=== PATIENT | female | born 1935 | race Caucasian/White ===

== ENCOUNTER 2017-08-05 09:20 | Outpatient (CLI) | payer MEDICARE, BC | END 2017-08-05 09:21 | disposition home or self-care (01) | LOC: BICMAMMO 09:20 | PROVIDERS: ATTEND Internal Medicine | DX: Z12.31 Encounter for screening mammogram for malignant neoplasm of breast (principal); R92.1 Mammographic calcification found on diagnostic imaging of breast; Z80.3 Family history of malignant neoplasm of breast | CPT/HCPCS: 77063; 77067 ==

== ENCOUNTER 2019-03-14 16:34 | Emergency (ER) | payer MEDICARE, BC ==
[~2019-03-14 16:34] MED LIST: ISOVUE-370 76%-LOCM 1 ML ONE
--- NOTE | 2019-03-14 17:20 | RAD ---
PA AND LATERAL CHEST: 03/14/19 HISTORY: Chest pain. Heart size is within normal limits. There are atherosclerotic changes of the aorta. The lungs are pedro ar of infiltrates. There are arthritic changes of the spine. IMPRESSION: No active intrathoracic disease. POS: [facility]
[2019-03-14 18:11] LABS: #Eosinphils 0.1 thou/uL (0.0-0.7); #Lymphocytes 1.9 thou/uL (1.20-3.40); #Monocytes 1.1 thou/uL (0.11-0.59); #Neutrophils 8.1 thou/uL (1.40-6.50); %Basophils 0.2 % (0.0-1.0); %Eosinophils 0.9 % (0.0-10.0); %Lymphocytes 17.2 % (21.0-51.0); %Monocytes 9.5 % (0.0-10.0); %Neutrophils 72.1 % (42.0-75.0); Hemoglobin 12.3 g/dL (12.0-16.0); Mean Corpuscular HGB CONC 34.6 g/dL (32.0-36.0); Mean Corpuscular Hemoglobin 31.6 pg (27.0-31.0); Mean Corpuscular Volume 91.2 fL (78.0-98.0); Mean Platelet Volume 6.5 fL (7.4-10.4); Platelet Count 308 thou/uL (130-400); RBC Distribution Width 11.8 % (11.5-14.5); Red Blood Cell (RBC) Count 3.88 mill/uL (4.20-5.40); White Blood Cell (WBC) Count 11.2 thou/uL (4.8-10.8)
[2019-03-14 18:33] LABS: Anion Gap 13 mmol/L (10-20); BUN (Urea Nitrogen) 16 mg/dL (9.8-20.1); Calc. Creatinine Clearance 0 mL/min (70-130); Calcium 9.3 mg/dL (7.8-10.44); Carbon Dioxide 23 mmol/L (23-31); Chloride 95 mmol/L (98-107); Estimated GFR-MDRD 45; Glucose 103 mg/dL (83-110); Magnesium 1.8 mg/dL (1.6-2.6); Sodium 127 mmol/L (136-145)
--- NOTE | 2019-03-14 19:37 | CT ---
CTA OF THE THORAX UTILIZING IV CONTRAST AND 3D REFORMATTED IMAGIN03/14/19 INDICATION: Left sided chest pain, shortness of breath. COMPARISON: Prior CT of the thorax dated 03/09/19 and 11/11/17. FINDINGS: No central or segmental pulmonary embolus is evident. No pathologically enlarged lymph nodes are noted. There is an area of tree-in-bud nodularity involving the inferior lingula. No pleural effusion or pne umothorax is evident. There are areas of subsegmental volume loss involving both lower lobes, right m iddle lobe and portions of the right upper lobe. There are coronary artery and thoracic aortic calcifications. There are gallstones seen within the gallbladder. There is a 2 cm and 3.4 cm cyst involving segment V I of the right hepatic lobe. There are tiny subcentimeter suspected cysts within the lateral left and medial left hepatic lobe. These small cysts are stable since 2018. The visualized adrenal glands are normal appearing. No definite acute osseous abnormality is evident. There are scattered degenerative and osteoarthritic change. IMPRESSION: 1. No central or segmental pulmonary embolus. 2. Area of tree-in-bud nodularity within the lingula suspicious for bronchiolitis. Follow-up CT evaluation in 6 to 8 weeks recommended to document resolution. 3. Cholelithiasis. 4. Hepatic cysts. POS: [facility]
== END 2019-03-14 20:00 | disposition home or self-care (01) ==
LOC: ERS 16:34
DX: J21.9 Acute bronchiolitis, unspecified (principal); E87.1 Hypo-osmolality and hyponatremia; I48.91 Unspecified atrial fibrillation; E78.5 Hyperlipidemia, unspecified; I10 Essential (primary) hypertension; E03.9 Hypothyroidism, unspecified; Z79.899 Other long term (current) drug therapy
CPT/HCPCS: 71046; 71275; 80048; 83735; 84484; 85025; 85379; 93005

== ENCOUNTER 2020-04-28 17:29 | Inpatient (IN) | payer MEDICARE, BC ==
[2020-04-28 18:01] LABS: #Eosinphils 0.2 thou/uL (0.0-0.7); #Monocytes 1.3 thou/uL (0.11-0.59); #Neutrophils 11.6 thou/uL (1.40-6.50); %Basophils 0.3 % (0.0-1.0); %Eosinophils 1.6 % (0.0-10.0); %Lymphocytes 13.1 % (21.0-51.0); %Monocytes 8.5 % (0.0-10.0); %Neutrophils 76.5 % (42.0-75.0); Hemoglobin 11.9 g/dL (12.0-16.0); Mean Corpuscular Hemoglobin 31.4 pg (27.0-31.0); Mean Corpuscular Volume 95.1 fL (78.0-98.0); Mean Platelet Volume 6.7 fL (7.4-10.4); Platelet Count 474 thou/uL (130-400); RBC Distribution Width 12.5 % (11.5-14.5); White Blood Cell (WBC) Count 15.2 thou/uL (4.8-10.8)
[2020-04-28] MEDS ORDERED: Atropine Sulfate 1 mg/10 ml Syringe ONE ×2 (18:03→18:28)
[2020-04-28 18:10] LABS: INR-International Normal Ratio 1.2; PTT 38.6 sec (22.9-36.1); Prothrombin Time 15.9 sec (12.0-14.7)
[2020-04-28 18:30] LABS: ALT (SGPT) 12 U/L (8-55); AST (SGOT) 17 U/L (5-34); Alkaline Phosphatase 73 U/L (40-110); Anion Gap 18 mmol/L (10-20); BUN (Urea Nitrogen) 25 mg/dL (9.8-20.1); Bilirubin, Total 0.4 mg/dL (0.2-1.2); Calc. Creatinine Clearance 0 mL/min (70-130); Calcium 9.3 mg/dL (7.8-10.44); Carbon Dioxide 18 mmol/L (23-31); Chloride 101 mmol/L (98-107); Estimated GFR-MDRD 20; Globulin 2.8 g/dL (2.4-3.5); Glucose 160 mg/dL (83-110); Potassium 4.4 mmol/L (3.5-5.1); Protein, Total 6.8 g/dL (6.0-8.3); Sodium 133 mmol/L (136-145)
--- NOTE | 2020-04-28 18:50 | RAD ---
XR Chest 1 View Portable History: Chest pain Comparison: Radiograph February 2019 Findings: Calcified granulomas throughout the left lung. Lungs are without confluent airspace consoli dation, pneumothorax or effusion. No acute osseous abnormality. Impression: No acute intrathoracic abnormality.
[2020-04-28] MEDS ORDERED: cefTRIAXone\\ROCEPHIN 1 GM VIAL ONE (19:25)
[2020-04-28] MEDS ORDERED: Vancomycin 1 GM/200 ML BAG ONE (19:25)
[2020-04-28] MEDS ORDERED: Ondansetron PF 4 MG/2 ML Vial ONE (20:07)
[2020-04-28 20:17] LABS: Bacteria/HPF 4+ HPF (None Seen); Bilirubin Negative (Negative); Blood, Urine 1+ (Negative); Clarity Extra Turbid (Clear); Glucose, Urine (Dipstick) Normal (Negative); Ketone, Urine Negative (Negative); Leukocyte 500 Leu/uL (Negative); Nitrite Negative (Negative); Protein, Urine (Dipstick) 100 mg/dL (Neg-Trace); RBC/HPF Greater than 50 HPF (0-3); Renal Epithelial 0-3 HPF (None Seen); Specific Gravity, Urine 1.025 (1.002-1.036); Squamous Epithelial 21-50 HPF (0-3); Urobilinogen 3 mg/dL (Less than 2); WBC/HPF Greater than 50 HPF (0-3); pH, Urine 5.5 (5.0-9.0)
[2020-04-28] MEDS ORDERED: Acetaminophen 325 MG TAB PO PRN (21:03)
[2020-04-28] MEDS ORDERED: Calcium Carbonate 500 MG ChewTAB PO PRN (21:03)
[2020-04-28] MEDS ORDERED: Acetaminophen 650 MG Suppository PR PRN (21:03)
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
[2020-04-28 21:46] LABS: Lactic Acid 1.9 mmol/L (0.5-2.2)
[2020-04-28 21:55] LABS: Troponin I Less than 0.010 ng/mL (< 0.028)
[2020-04-28 22:47] VITALS: BMI 32.7
[2020-04-28] MEDS: Sodium Chloride 0.9% 1,000 ML IV SCH (23:01)
--- NOTE | 2020-04-29 | ULT ---
Renal sonogram HISTORY: Renal failure. FINDINGS: Right kidney is 8.1 cm length and left 7.6 cm. No hydronephrosis or solid mass. There is a 0.7 cm exophytic cyst from the lateral cortex of the left kidney. Urinary bladder is is incompletely distended. Bilateral ureteral jets are apparent. IMPRESSION : No evidence of urinary tract obstruction or other significant abnormality.
[2020-04-29 02:24] LABS: Troponin I Less than 0.010 ng/mL (< 0.028)
[2020-04-29 02:25] LABS: Band 2 % (5-11); Eosinophils 1 % (0-10); Hemoglobin 11.3 g/dL (12.0-16.0); Lymphocytes 6 % (21-51); MDiff Complete? YES; Mean Corpuscular HGB CONC 33.7 g/dL (32.0-36.0); Mean Corpuscular Hemoglobin 32.2 pg (27.0-31.0); Mean Corpuscular Volume 95.5 fL (78.0-98.0); Mean Platelet Volume 6.6 fL (7.4-10.4); Monocytes 8 % (0-10); Neutrophil 83 % (42-75); Nucleated RBC 1 % (0); Platelet Count 426 thou/uL (130-400); Platelet Morphology Comment Appears Increased; RBC Distribution Width 12.3 % (11.5-14.5); White Blood Cell (WBC) Count 15.8 thou/uL (4.8-10.8)
[2020-04-29 02:40] LABS: ALT (SGPT) 15 U/L (8-55); AST (SGOT) 17 U/L (5-34); Albumin 3.7 g/dL (3.4-4.8); Alkaline Phosphatase 69 U/L (40-110); Anion Gap 16 mmol/L (10-20); BUN (Urea Nitrogen) 24 mg/dL (9.8-20.1); Bilirubin, Total 0.4 mg/dL (0.2-1.2); Calc. Creatinine Clearance 26 mL/min (70-130); Calcium 8.3 mg/dL (7.8-10.44); Carbon Dioxide 17 mmol/L (23-31); Chloride 104 mmol/L (98-107); Estimated GFR-MDRD 23; Globulin 2.5 g/dL (2.4-3.5); Glucose 135 mg/dL (83-110); Magnesium 1.7 mg/dL (1.6-2.6); Potassium 4.2 mmol/L (3.5-5.1); Protein, Total 6.2 g/dL (6.0-8.3); Sodium 133 mmol/L (136-145)
[2020-04-29] MEDS ORDERED: Melatonin 3 MG TAB PO SCH (02:45)
[2020-04-29] MEDS: Levothyroxine Sodium 75 MCG TAB PO SCH (04:29)
[2020-04-29] MEDS ORDERED: ALPRAZolam 0.5 MG TAB PO SCH (04:30)
--- NOTE | 2020-04-29 08:31 | PDOC.HOSPP ---
- Subjective Encounter Date: 04/29/20 Encounter Time: 08:29 Subjective: awake, non-sensical rambling, oriented to person - Objective Vital Signs & Weight: Vital Signs (12 hours) Temp Pulse Resp BP Pulse Ox 04/29/20 07:42 97.4 F L 72 20 122/79 93 L 04/29/20 03:42 97.5 F L 75 18 122/59 L 93 L 04/29/20 00:00 97.5 F L 119/59 L 04/28/20 22:43 97.6 F 63 20 116/57 L 100 04/28/20 22:25 100 Weight Weight 184 lb 12.8 oz I&O: 04/28/20 04/29/20 04/30/20 06:59 06:59 06:59 Intake Total 300 Balance 300 Result Diagrams: 04/29/20 01:49 04/29/20 01:49 Hospitalist ROS - Medication Medications: Active Medications Generic Name Dose Route Start Last Admin Trade Name Freq PRN Reason Stop Dose Admin Sodium Chloride 1,000 mls @ 75 mls/hr 04/28/20 21:15 04/28/20 23:01 Normal Saline 0.9% IV 1,000 mls .[id number] GILES Administration Levothyroxine Sodium 75 mcg 04/29/20 06:00 04/29/20 04:29 Levothyroxine Sodium 75 Mcg Tab PO 75 mcg 0600 GILES Administration - Exam General Appearance: awake alert Neck: no JVD Heart: RRR Heart - other findings: soft sys murmur Respiratory: CTAB, no wheezes Gastrointestinal: soft, non-tender, non-distended Extremities: 2+ LE edema Hosp A/P (1) Sinus bradycardia Code(s): R00.1 - BRADYCARDIA, UNSPECIFIED Status: Acute (2) JEF (acute kidney injury) Code(s): N17.9 - ACUTE KIDNEY FAILURE, UNSPECIFIED Status: Acute (3) Sepsis Code(s): A41.9 - SEPSIS, UNSPECIFIED ORGANISM Status: Acute Qualifiers: Sepsis type: sepsis due to unspecified organism Sepsis acute organ dysfunction status: with acute organ dysfunction Severe sepsis acute organ dysfunction type: acute renal failure Acute renal failure type: unspecified Severe sepsis shock status: without septic shock Qualified Code(s): A41.9 - Sepsis, unspecified organism; R65.20 - Severe sepsis without septic shock; N17.9 - Acute kidney failure, unspecified (4) UTI (urinary tract infection) Status: Acute Qualifiers: Hematuria presence: without hematuria (5) Essential hypertension Code(s): I10 - ESSENTIAL (PRIMARY) HYPERTENSION Status: Chronic (6) PAF (paroxysmal atrial fibrillation) Code(s): I48.0 - PAROXYSMAL ATRIAL FIBRILLATION Status: Chronic (7) Dementia Code(s): F03.90 - UNSPECIFIED DEMENTIA WITHOUT BEHAVIORAL DISTURBANCE Status: Chronic Qualifiers: Dementia type: unspecified type - Plan cont iv antibx await blood/urine C&S hold cardizem/metoprolol until seen by cardiology cont selected home meds
[2020-04-29] MEDS: cefTRIAXone\\ROCEPHIN 2 GM in Sodium Chloride 0.9% 100 ML IVPB SCH (08:45)
[2020-04-29] MEDS: Apixaban 2.5 MG TAB PO SCH ×2 (08:45→20:15)
[2020-04-29] MEDS: Atorvastatin Calcium 20 MG TAB PO SCH (08:45)
[2020-04-29 08:59] LABS: Hemoglobin 11.6 g/dL (12.0-16.0); Platelet Count 418 thou/uL (130-400)
[2020-04-29 14:55] LABS: SARS-CoV-2 MS2 Positive; SARS-CoV-2 N Gene Negative; SARS-CoV-2 S Gene Negative; SARS-CoV-2 by NAA Not Detected (NotDetected); SARS-CoV-2 orf1ab Negative
--- NOTE | 2020-04-29 17:15 | CON ---
DATE OF CONSULTATION: REASON FOR CONSULTATION: Bradycardia. HISTORY OF PRESENT ILLNESS: Ms. Merritt is a pleasant 84-year-old woman who is a patient Dr. Leslie Gonzalez. She has a history of atrial fibrillation. She recently presented with mild confusion in addition to shortness of breath and chest tightness. No other issues present. She was diagnosed with a UTI. While being admitted, she was found to be bradycardic with heart rate in the 40s. She is currently on beta-keith therapy. PAST MEDICAL HISTORY: Inappropriate sinus tachycardia, hyperlipidemia, hypertension, hypothyroidism, PACs, paroxysmal atrial fibrillation. Other past medical history includes ovarian tumor removal, knee replacement, rotator cuff surgery, and CAD. HOME MEDICATIONS: Include, 1. Metoprolol. 2. Claritin. 3. Simvastatin. 4. Olmesartan. 5. Eliquis. 6. Levothyroxine. 7. Amlodipine. SOCIAL HISTORY: No current tobacco or alcohol use. REVIEW OF SYSTEMS: A 10-point review of systems is reviewed as above, otherwise negative. PHYSICAL EXAMINATION: GENERAL: Patient is a pleasant woman who is in no acute distress. The patient appears their stated age. VITAL SIGNS: Blood pressure 127/59, pulse 80, temperature 97.7. NEUROLOGIC: The patient is alert and oriented x3 with no focal neurologic deficits. HEENT: Sclerae without icterus. Mouth has moist mucous membranes with normal pallor. NECK: No JVD. Carotid upstroke brisk. No bruits bilaterally. LUNGS: Clear to auscultation with unlabored respirations. BACK: No scoliosis or kyphosis. CARDIAC: Regular rate and rhythm with normal S1 and S2. No S3 or S4 noted. No significant rubs, murmurs, thrills, or gallops noted throughout the precordium. PMI is not displaced. There is no parasternal heave. ABDOMEN: Soft, nontender, nondistended. No peritoneal signs present. No hepatosplenomegaly. No abnormal striae. EXTREMITIES: 2+ femoral and 2+ dorsalis pedis pulses. No cyanosis, clubbing, or edema. SKIN: No gross abnormalities. PERTINENT LABORATORY DATA: Hemoglobin 11.6, hematocrit 35.1. Creatinine 2.07 with a GFR of 23. IMPRESSION: 1. Bradycardia. 2. Paroxysmal atrial fibrillation. 3. Urinary tract infection. RECOMMENDATIONS: The patient is currently on a beta-keith therapy and it may be a precipitating factor for her bradycardia. She has had issues with tachycardia in the past. Certainly, it is appropriate to hold her beta-keith therapy for now. We would recommend decreasing her Eliquis to 2.5 mg b.i.d. from 5 mg b.i.d. due to age and creatinine. Continue antibiotic therapy for a UTI. We will continue to follow with you. Job ID: [id number]
[2020-04-29] MEDS ORDERED: Sodium Chloride 0.9% 1,000 ML IV SCH (17:25)
[2020-04-29] MEDS: Sodium Chloride 0.9% 1,000 ML IV SCH (18:30)
[2020-04-29] MEDS: HYDROcodone/Acetaminophen 5/325 mg Tablet PO PRN (20:15)
[2020-04-29] MEDS ORDERED: Albuterol Sulfate 1.25 MG/3 ML NEB NEB SCH (21:15)
--- NOTE | 2020-04-29 21:17 | RAD ---
EXAM: Single view of the chest HISTORY: Shortness of breath COMPARISON: 04/28/2020 FINDINGS: Single view of the chest shows a normal sized cardiomediastinal silhouette. Bibasilar opaci ties may represent atelectasis or infiltrates. Degenerative changes are seen in the spine. IMPRESSION: Bibasilar atelectasis versus infiltrates
[2020-04-29 21:23] LABS: CO2 Tension 32.9 mmHg (35.0-45.0); pH, Arterial 7.33 (7.35-7.45)
[2020-04-29 21:25] LABS: Actual Bicarbonate (HCO3a) 17.1 mEq/L (22-28); Base Excess (BEa) -7.8 mEq/L (-2.0 to +3.0); Carboxyhemoglobin (COHb) 0.4 gm% (0.0-3.0); Hemoglobin (Hb) 11.2 g/dL (12.0-16.0); O2 Tension (PaO2), arterial 57.6 mmHg (> 60.0)
[2020-04-29 21:26] LABS: Calcium, Ionized (arterial) 1.15 mmol/L (1.12-1.30); Potassium - ABG Lab 3.97 mmol/L (3.70-5.30)
[2020-04-29 21:26] LABS: #Eosinphils 0.1 thou/uL (0.0-0.7); #Lymphocytes 1.2 thou/uL (1.20-3.40); #Monocytes 1.3 thou/uL (0.11-0.59); #Neutrophils 13.7 thou/uL (1.40-6.50); %Basophils 0.1 % (0.0-1.0); %Eosinophils 0.6 % (0.0-10.0); %Lymphocytes 7.1 % (21.0-51.0); %Neutrophils 84.2 % (42.0-75.0); Hemoglobin 10.8 g/dL (12.0-16.0); Mean Corpuscular HGB CONC 33.7 g/dL (32.0-36.0); Mean Corpuscular Hemoglobin 32.3 pg (27.0-31.0); Mean Corpuscular Volume 95.7 fL (78.0-98.0); Mean Platelet Volume 6.7 fL (7.4-10.4); Platelet Count 376 thou/uL (130-400); RBC Distribution Width 12.4 % (11.5-14.5); Red Blood Cell (RBC) Count 3.34 mill/uL (4.20-5.40); White Blood Cell (WBC) Count 16.3 thou/uL (4.8-10.8)
[2020-04-29 21:27] LABS: Analyzer IN Cardio OR; Puncture Site RRA
[2020-04-29 21:28] LABS: ALV-art Gradient 100.915 mmHg (0-20)
[2020-04-29 21:41] LABS: Lactic Acid 1.9 mmol/L (0.5-2.2)
[2020-04-29 21:47] LABS: Anion Gap 15 mmol/L (10-20); BUN (Urea Nitrogen) 21 mg/dL (9.8-20.1); Calc. Creatinine Clearance 36 mL/min (70-130); Calcium 8.3 mg/dL (7.8-10.44); Carbon Dioxide 17 mmol/L (23-31); Chloride 104 mmol/L (98-107); Estimated GFR-MDRD 32; Glucose 138 mg/dL (83-110); Sodium 132 mmol/L (136-145)
[2020-04-30] MEDS: Levothyroxine Sodium 75 MCG TAB PO SCH (05:14)
[2020-04-30] MEDS: Atorvastatin Calcium 20 MG TAB PO SCH (09:12)
[2020-04-30] MEDS: cefTRIAXone\\ROCEPHIN 2 GM in Sodium Chloride 0.9% 100 ML IVPB SCH (09:12)
[2020-04-30] MEDS: Apixaban 2.5 MG TAB PO SCH ×2 (09:12→21:39)
[2020-04-30] MEDS: Amlodipine 5 MG TAB PO SCH (09:12)
[2020-04-30] MEDS: Bupropion 100 MG SR TAB PO SCH (09:12)
--- NOTE | 2020-04-30 14:00 | PDOC.HOSPP ---
- Subjective Encounter Date: 04/30/20 - Objective Vital Signs & Weight: Vital Signs (12 hours) Temp Pulse Resp BP Pulse Ox 04/30/20 12:36 98.1 F 103 H 16 147/66 H 96 04/30/20 07:27 97.0 F L 99 16 143/63 H 04/30/20 04:00 98.4 F 93 20 163/72 H 95 Weight Weight 184 lb 12.8 oz I&O: 04/29/20 04/30/20 05/01/20 06:59 06:59 06:59 Intake Total 1940 Output Total 700 Balance 1240 Result Diagrams: 04/29/20 21:07 04/29/20 21:07 Hospitalist ROS - Medication Medications: Active Medications Generic Name Dose Route Start Last Admin Trade Name Freq PRN Reason Stop Dose Admin Hydrocodone Bitart/Acetaminophen 1 tab 04/28/20 21:03 04/29/20 20:15 Hydrocodone/Acetaminophen 5/325 Mg Tablet PO 1 tab Q4H PRN Administration Moderate Pain (4-6) Albuterol/Ipratropium 3 ml 04/29/20 20:22 04/29/20 20:45 Ipratropium/Albuterol Sulfate 3 Ml Neb NEB 3 ml [id number] PRN Administration Wheezing Amlodipine Besylate 5 mg 04/30/20 09:00 04/30/20 09:12 Amlodipine 5 Mg Tab PO 5 mg DAILY GILES Administration Apixaban 2.5 mg 04/29/20 09:00 04/30/20 09:12 Apixaban 2.5 Mg Tab PO 2.5 mg BID GILES Administration Atorvastatin Calcium 20 mg 04/29/20 09:00 04/30/20 09:12 Atorvastatin Calcium 20 Mg Tab PO 20 mg DAILY GILES Administration Bupropion HCl 100 mg 04/30/20 09:00 04/30/20 09:12 Bupropion 100 Mg Sr Tab PO 100 mg DAILY GILES Administration Ceftriaxone Sodium 2 gm/ 100 mls @ 200 mls/hr 04/29/20 08:00 04/30/20 09:12 Sodium Chloride IVPB 100 mls Q24HR GILES Administration Levothyroxine Sodium 75 mcg 04/29/20 06:00 04/30/20 05:14 Levothyroxine Sodium 75 Mcg Tab PO 75 mcg 0600 GILES Administration Metoprolol Succinate 25 mg 04/30/20 12:30 04/30/20 13:23 Metoprolol Succinate Xl 25 Mg Tab PO 04/30/20 14:00 25 mg 1230 GILES Administration - Exam General Appearance: awake alert ENT: normocephalic atraumatic Neck: supple, no JVD Heart: RRR Respiratory: normal chest expansion, no tachypnea Extremities: no cyanosis Neurological: cranial nerve grossly intact, no new deficit Hosp A/P (1) Sepsis Code(s): A41.9 - SEPSIS, UNSPECIFIED ORGANISM Status: Acute Qualifiers: Sepsis type: sepsis due to unspecified organism Sepsis acute organ dysfunction status: with acute organ dysfunction Severe sepsis acute organ dysfunction type: acute renal failure Acute renal failure type: unspecified Severe sepsis shock status: without septic shock Qualified Code(s): A41.9 - Sepsis, unspecified organism; R65.20 - Severe sepsis without septic shock; N17.9 - Acute kidney failure, unspecified (2) Sinus bradycardia Code(s): R00.1 - BRADYCARDIA, UNSPECIFIED Status: Acute (3) UTI (urinary tract infection) Status: Acute Qualifiers: Hematuria presence: without hematuria (4) CKD (chronic kidney disease), stage III Code(s): N18.3 - CHRONIC KIDNEY DISEASE, STAGE 3 (MODERATE) * DO NOT USE * Status: Chronic (5) HTN (hypertension) Code(s): I10 - ESSENTIAL (PRIMARY) HYPERTENSION Status: Chronic Qualifiers: Hypertension type: essential hypertension Qualified Code(s): I10 - Essential (primary) hypertension (6) Hypothyroidism Code(s): E03.9 - HYPOTHYROIDISM, UNSPECIFIED Status: Chronic - Plan Sepsis secondary to UTI. Culture results showing growth of E. coli that is sensitive only to IV antibiotics. Sepsis improving. 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 Creatinine level continues to improve. Chest x-ray showing evidence of pulmonary edema. Hold IV fluids administer 1 dose of Lasix 20 mg IV. Follow intake and output.
--- NOTE | 2020-04-30 14:50 | PDOC.CPN ---
- Subjective Date: 04/30/20 Time: 10:00 Interval history: No complaints overnight. Patient feels ok. Pulse rate up to 100bpm now. - Review of Systems General: denies: fever/chills, weight/appetite/sleep changes, night sweats, fatigue Respiratory: denies: cough, congestion, shortness of breath, exercise intolerance Cardiovascular: denies: chest pain, palpitation, edema, paroxysmal nocturnal dyspnea, orthopnea Gastrointestinal: denies: nausea, vomiting, diarrhea, constipation, abd pain, GI bleeding Musculoskeletal: denies: pain, tenderness, stiffness, swelling, arthritis/arthralgias Neurological: denies: numbness, syncope, seizure, weakness - Objective Allergies/Adverse Reactions: Allergies Allergy/AdvReac Type Severity Reaction Status Date / Time codeine Allergy Verified 04/28/20 23:47 niacin Allergy Verified 04/28/20 23:47 Penicillins Allergy Verified 04/28/20 23:47 Visit Medications: Current Medications Acetaminophen (Acetaminophen 325 Mg Tab) 650 mg PO Q4H PRN PRN Reason: Headache/Fever/Mild Pain (1-3) Acetaminophen (Acetaminophen 650 Mg Suppository) 650 mg [place] Q4H PRN PRN Reason: Headache/Fever/Mild Pain (1-3) Hydrocodone Bitart/Acetaminophen (Hydrocodone/Acetaminophen 5/325 Mg Tablet) 1 tab PO Q4H PRN PRN Reason: Moderate Pain (4-6) Last Admin: 04/29/20 20:15 Dose: 1 tab Documented by: Albuterol/Ipratropium (Ipratropium/Albuterol Sulfate 3 Ml Neb) 3 ml NEB [id number] PRN PRN Reason: Wheezing Last Admin: 04/29/20 20:45 Dose: 3 ml Documented by: Amlodipine Besylate (Amlodipine 5 Mg Tab) 5 mg PO DAILY [facility] Last Admin: 04/30/20 09:12 Dose: 5 mg Documented by: Apixaban (Apixaban 2.5 Mg Tab) 2.5 mg PO BID [facility] Last Admin: 04/30/20 09:12 Dose: 2.5 mg Documented by: Atorvastatin Calcium (Atorvastatin Calcium 20 Mg Tab) 20 mg PO DAILY [facility] Last Admin: 04/30/20 09:12 Dose: 20 mg Documented by: Bupropion HCl (Bupropion 100 Mg Sr Tab) 100 mg PO DAILY [facility] Last Admin: 04/30/20 09:12 Dose: 100 mg Documented by: Calcium Carbonate (Calcium Carbonate 500 Mg Chewtab) 1,000 mg PO Q4H PRN PRN Reason: Heartburn or Indigestion Ceftriaxone Sodium 2 gm/ (Sodium Chloride) 100 mls @ 200 mls/hr IVPB Q24HR [facility] Last Admin: 04/30/20 09:12 Dose: 100 mls Documented by: Levothyroxine Sodium (Levothyroxine Sodium 75 Mcg Tab) 75 mcg PO 0600 [facility] Last Admin: 04/30/20 05:14 Dose: 75 mcg Documented by: Metoprolol Succinate (Metoprolol Succinate Xl 25 Mg Tab) 25 mg PO DAILY [facility] Vital Signs & Weight: Vital Signs Temp Pulse Resp BP Pulse Ox 04/30/20 12:36 98.1 F 103 H 16 147/66 H 96 04/30/20 07:27 97.0 F L 99 16 143/63 H 04/30/20 04:00 98.4 F 93 20 163/72 H 95 Weight 184 lb 12.8 oz - Physical Exam General: alert & oriented x3, appears well, no apparent distress HEENT: mucus membranes moist, normocephaly Neck: supple neck Cardiac: other (regular, tachy) Lungs: normal breath sounds, no wheeze, rales, rhonchi Neuro: grossly intact Abdomen: soft, non-tender Extremities: no cyanosis Skin: clear Musculoskeletal: normal range of motion, no pain - Labs Result Diagrams: 04/29/20 21:07 04/29/20 21:07 Troponin/CKMB Troponin I Less than 0.010 ng/mL (< 0.028) 04/29/20 01:49 - Assessment/Plan Assessment/Plan: 1. Paroxymal AF 2. Bradycardia 3. ANDREA 4. Sepsis Patient was on Cartia and bblockers at the time of admission and did not disclose to RG. Toprol held as possible source of geovani. Now tachy. Will resume bblocker at low dosage to see if her pulse tolerates.
--- NOTE | 2020-04-30 17:41 | PRG ---
DATE OF SERVICE: 04/30/2020 OBJECTIVE: GENERAL: This is a well-built female, in no apparent distress. VITAL SIGNS: Temperature 98.1, pulse 103, respiratory rate 20, and blood pressure 147/66. LABORATORY DATA: Potassium 4.0, BUN is 31, creatinine is 1.5. ASSESSMENT AND PLAN: 1. Acute kidney injury, better. 2. Cardiorenal syndrome. 3. Hyponatremia. 4. Edema. 5. Anemia of chronic disease. Okay with stopping IV fluids and Lasix as needed. We will follow. Renal function is getting better. Job ID: [id number]
[2020-04-30] MEDS ORDERED: Furosemide 20 MG/2 ML VIAL SLOW IVP SCH (17:45)
[2020-04-30] MEDS ORDERED: Amiodarone HCl 150 MG in Dextrose 5% in Water 100 ML IVPB SCH (19:15)
[2020-04-30 19:16] LABS: ALT (SGPT) 16 U/L (8-55); AST (SGOT) 22 U/L (5-34); Albumin 3.8 g/dL (3.4-4.8); Alkaline Phosphatase 76 U/L (40-110); Bilirubin, Direct 0.2 mg/dL (0.1-0.3); Bilirubin, Total 0.4 mg/dL (0.2-1.2); Magnesium 1.8 mg/dL (1.6-2.6); Potassium 3.7 mmol/L (3.5-5.1); Protein, Total 6.6 g/dL (6.0-8.3)
[2020-04-30] MEDS: HYDROcodone/Acetaminophen 5/325 mg Tablet PO PRN (21:39)
[2020-05-01] MEDS: Levothyroxine Sodium 75 MCG TAB PO SCH (05:07)
[2020-05-01] MEDS: Atorvastatin Calcium 20 MG TAB PO SCH (07:47)
[2020-05-01] MEDS: Amlodipine 5 MG TAB PO SCH ×2 (07:47→21:30)
[2020-05-01] MEDS: Apixaban 2.5 MG TAB PO SCH ×2 (07:48→21:30)
[2020-05-01] MEDS: Amiodarone HCl 450 MG in Dextrose 5% in Water 250 ML IVPB SCH ×2 (07:49→21:33)
[2020-05-01] MEDS: cefTRIAXone\\ROCEPHIN 2 GM in Sodium Chloride 0.9% 100 ML IVPB SCH (08:08)
[2020-05-01] MEDS: Digoxin 0.25 MG TAB PO SCH ×3 (10:38→21:29)
[2020-05-01] MEDS: Bupropion 100 MG SR TAB PO SCH (10:43)
--- NOTE | 2020-05-01 11:13 | CON ---
DATE OF CONSULTATION: 04/29/2020 CONSULTING PHYSICIAN: Dr. Vidal. REASON FOR CONSULTATION: Acute kidney injury. REASON FOR ADMISSION: Shortness of breath. HISTORY OF PRESENT ILLNESS: This is an 84-year-old female with history of hypothyroidism, atrial fibrillation, hypertension, came to the hospital with shortness of breath, has been evaluated. Nephrology consulted for acute kidney injury. Her baseline creatinine is around 1.1 to 1.3 and was found to be 2.29 on admission, now it is 1.82 with hydration. No fevers or chills. No nausea or vomiting. The patient is most likely feeling better. PAST MEDICAL HISTORY: Positive for; 1. Hypertension. 2. Hyperlipidemia. 3. Hypothyroidism. 4. Atrial fibrillation. PAST SURGICAL HISTORY: 1. Appendectomy. 2. Oophorectomy on the left side. HOME MEDICATIONS: Reviewed. ALLERGIES: NIACIN, PENICILLIN, AND CODEINE. SOCIAL HISTORY: No smoking, alcohol, or illicit drugs. FAMILY HISTORY: No history of kidney disease. REVIEW OF SYSTEMS: CONSTITUTIONAL: Negative for weight loss or gain, ability to conduct usual activities. SKIN: Negative for rash, itching. EYES: Negative for double vision, pain. ENT/MOUTH: Negative for nose bleeding, neck stiffness, pain, tenderness. CARDIOVASCULAR: Negative for palpitations, dyspnea on exertion, orthopnea. RESPIRATORY: Negative for shortness of breath, wheezing, cough, hemoptysis, fever or night sweats. GASTROINTESTINAL: Negative for poor appetite, abdominal pain, heartburn, nausea, vomiting, constipation, or diarrhea. GENITOURINARY: Negative for urgency, frequency, dysuria, nocturia. MUSCULOSKELETAL: Negative for pain, swelling. NEUROLOGIC/PSYCHIATRIC: Negative for anxiety, depression. ALLERGY/IMMUNOLOGIC: Negative for skin rash, bleeding tendency. PHYSICAL EXAMINATION: GENERAL: This is a well-built female, in no apparent distress. VITAL SIGNS: Temperature 98.4, pulse 65, respiratory rate 18, blood pressure 135/58. HEENT: Atraumatic, normocephalic. Oral mucosa moist. NECK: Supple. CV: S1 and S2. Rate and rhythm regular. RESPIRATORY: Clear. GI: Abdomen is soft. MUSCULOSKELETAL: DERMATOLOGIC: No skin rash. NEUROLOGIC: Alert and awake. PSYCHIATRIC: Normal mood and affect. LABORATORY DATA: Potassium 4.2, BUN is 24, creatinine is 2.07, creatinine now down to 1.8. ASSESSMENT AND PLAN: 1. Acute kidney injury on chronic kidney disease stage 3. Agree with current management. Creatinine is getting better. 2. Hyponatremia. 3. Acidosis. 4. Anemia of chronic disease. 5. Hypertension. Continue IV fluids if tolerated. We will reduce down to 50 mL/hr. Follow with Cardiology for optimization of cardiac medications. We will follow. Thank you for the consult. Job ID: [id number]
--- NOTE | 2020-05-01 13:02 | PDOC.HOSPP ---
- Subjective Encounter Date: 05/01/20 - Objective Vital Signs & Weight: Vital Signs (12 hours) Temp Pulse Pulse Pulse Resp BP BP 05/01/20 10:38 101 H 05/01/20 10:06 106 H 101 H 157/77 H 05/01/20 07:47 144 H 189/79 H 05/01/20 07:26 98.3 F 144 H 17 05/01/20 03:32 97.7 F 95 22 H BP BP Pulse Ox 05/01/20 10:38 05/01/20 10:06 166/74 H 05/01/20 07:47 05/01/20 07:26 189/79 H 95 05/01/20 03:32 138/67 95 Weight Weight 186 lb 4.8 oz I&O: 04/30/20 05/01/20 05/02/20 06:59 06:59 06:59 Intake Total 1940 950 240 Output Total 700 2300 Balance 1240 -1350 240 Result Diagrams: 04/29/20 21:07 04/30/20 18:41 Hospitalist ROS - Medication Medications: Active Medications Generic Name Dose Route Start Last Admin Trade Name Freq PRN Reason Stop Dose Admin Hydrocodone Bitart/Acetaminophen 1 tab 04/28/20 21:03 04/30/20 21:39 Hydrocodone/Acetaminophen 5/325 Mg Tablet PO 1 tab Q4H PRN Administration Moderate Pain (4-6) Albuterol/Ipratropium 3 ml 04/29/20 20:22 04/29/20 20:45 Ipratropium/Albuterol Sulfate 3 Ml Neb NEB 3 ml [id number] PRN Administration Wheezing Amlodipine Besylate 5 mg 04/30/20 09:00 05/01/20 07:47 Amlodipine 5 Mg Tab PO 5 mg DAILY [facility] Administration Apixaban 2.5 mg 04/29/20 09:00 05/01/20 07:48 Apixaban 2.5 Mg Tab PO 2.5 mg BID [facility] Administration Atorvastatin Calcium 20 mg 04/29/20 09:00 05/01/20 07:47 Atorvastatin Calcium 20 Mg Tab PO 20 mg DAILY [facility] Administration Bupropion HCl 100 mg 04/30/20 09:00 05/01/20 10:43 Bupropion 100 Mg Sr Tab PO 100 mg DAILY [facility] Administration Digoxin 0.25 mg 05/01/20 09:00 05/01/20 10:38 Digoxin 0.25 Mg Tab PO 05/02/20 03:01 0.25 mg 0300,0900,1500,2100 [facility] Administration Ceftriaxone Sodium 2 gm/ 100 mls @ 200 mls/hr 04/29/20 08:00 05/01/20 08:08 Sodium Chloride IVPB 100 mls Q24HR [facility] Administration Amiodarone HCl 450 mg/ 259 mls @ 0 mls/hr 04/30/20 19:15 05/01/20 07:49 Miscellaneous Medication 1 IVPB 259 mls each/ Dextrose/Water INF [facility] Administration Protocol As Directed Levothyroxine Sodium 75 mcg 04/29/20 06:00 05/01/20 05:07 Levothyroxine Sodium 75 Mcg Tab PO 75 mcg 0600 [facility] Administration Metoprolol Succinate 50 mg 05/01/20 09:00 05/01/20 10:39 Metoprolol Succinate Xl 50 Mg Tab PO 50 mg DAILY [facility] Administration - Exam General Appearance: awake alert Neck: supple, no JVD Heart: RRR Respiratory: normal chest expansion, no tachypnea Neurological: cranial nerve grossly intact Hosp A/P (1) Sepsis Code(s): A41.9 - SEPSIS, UNSPECIFIED ORGANISM Status: Acute Qualifiers: Sepsis type: sepsis due to unspecified organism Sepsis acute organ dysfunction status: with acute organ dysfunction Severe sepsis acute organ dysfunction type: acute renal failure Acute renal failure type: unspecified Severe sepsis shock status: without septic shock Qualified Code(s): A41.9 - S epsis, unspecified organism; R65.20 - Severe sepsis without septic shock; N17.9 - Acute kidney failure, unspecified (2) Sinus bradycardia Code(s): R00.1 - BRADYCARDIA, UNSPECIFIED Status: Acute (3) UTI (urinary tract infection) Status: Acute Qualifiers: Hematuria presence: without hematuria (4) CKD (chronic kidney disease), stage III Code(s): N18.3 - CHRONIC KIDNEY DISEASE, STAGE 3 (MODERATE) * DO NOT USE * Status: Chronic (5) HTN (hypertension) Code(s): I10 - ESSENTIAL (PRIMARY) HYPERTENSION Status: Chronic Qualifiers: Hypertension type: essential hypertension Qualified Code(s): I10 - Essential (primary) hypertension (6) Hypothyroidism Code(s): E03.9 - HYPOTHYROIDISM, UNSPECIFIED Status: Chronic - Plan Sepsis secondary to UTI. Culture results showing growth of E. coli that is sensitive only to IV antibiotics. Continue antibiotics to complete a 7-day course of treatment. 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 Creatinine level continues to improve. Chest x-ray showing evidence of pulmonary edema. Status post Lasix administration yesterday. Check CBC and BMP. Patient was tachycardic this morning Toprol dose increased to 50 mg orally daily.
--- NOTE | 2020-05-01 13:22 | PDOC.CPN ---
- Subjective Date: 05/01/20 Time: 11:30 Interval history: No complaints overnight. Patient converted in/out AF. Asymptomatic. - Review of Systems General: denies: fever/chills, weight/appetite/sleep changes, night sweats, fatigue Respiratory: denies: cough, congestion, shortness of breath, exercise intolerance Cardiovascular: denies: chest pain, palpitation, edema, paroxysmal nocturnal dyspnea, orthopnea Gastrointestinal: denies: nausea, vomiting, diarrhea, constipation, abd pain, GI bleeding Musculoskeletal: denies: pain, tenderness, stiffness, swelling, arthritis/arthralgias Neurological: denies: numbness, syncope, seizure, weakness - Objective Allergies/Adverse Reactions: Allergies Allergy/AdvReac Type Severity Reaction Status Date / Time codeine Allergy Verified 04/28/20 23:47 niacin Allergy Verified 04/28/20 23:47 Penicillins Allergy Verified 04/28/20 23:47 Visit Medications: Current Medications Acetaminophen (Acetaminophen 325 Mg Tab) 650 mg PO Q4H PRN PRN Reason: Headache/Fever/Mild Pain (1-3) Acetaminophen (Acetaminophen 650 Mg Suppository) 650 mg [place] Q4H PRN PRN Reason: Headache/Fever/Mild Pain (1-3) Hydrocodone Bitart/Acetaminophen (Hydrocodone/Acetaminophen 5/325 Mg Tablet) 1 tab PO Q4H PRN PRN Reason: Moderate Pain (4-6) Last Admin: 04/30/20 21:39 Dose: 1 tab Documented by: Albuterol/Ipratropium (Ipratropium/Albuterol Sulfate 3 Ml Neb) 3 ml NEB [id number] PRN PRN Reason: Wheezing Last Admin: 04/29/20 20:45 Dose: 3 ml Documented by: Amlodipine Besylate (Amlodipine 5 Mg Tab) 5 mg PO DAILY [facility] Last Admin: 05/01/20 07:47 Dose: 5 mg Documented by: Apixaban (Apixaban 2.5 Mg Tab) 2.5 mg PO BID [facility] Last Admin: 05/01/20 07:48 Dose: 2.5 mg Documented by: Atorvastatin Calcium (Atorvastatin Calcium 20 Mg Tab) 20 mg PO DAILY [facility] Last Admin: 05/01/20 07:47 Dose: 20 mg Documented by: Bupropion HCl (Bupropion 100 Mg Sr Tab) 100 mg PO DAILY [facility] Last Admin: 05/01/20 10:43 Dose: 100 mg Documented by: Calcium Carbonate (Calcium Carbonate 500 Mg Chewtab) 1,000 mg PO Q4H PRN PRN Reason: Heartburn or Indigestion Digoxin (Digoxin 0.25 Mg Tab) 0.25 mg PO 0300,0900,1500,2100 [facility] Stop: 05/02/20 03:01 Last Admin: 05/01/20 10:38 Dose: 0.25 mg Documented by: Ceftriaxone Sodium 2 gm/ (Sodium Chloride) 100 mls @ 200 mls/hr IVPB Q24HR [facility] Last Admin: 05/01/20 08:08 Dose: 100 mls Documented by: Amiodarone HCl 450 mg/Miscellaneous Medication 1 each/ Dextrose/Water 259 mls @ 0 mls/hr IVPB INF [facility]; Protocol Last Admin: 05/01/20 07:49 Dose: 259 mls Documented by: Levothyroxine Sodium (Levothyroxine Sodium 75 Mcg Tab) 75 mcg PO 0600 [facility] Last Admin: 05/01/20 05:07 Dose: 75 mcg Documented by: Metoprolol Succinate (Metoprolol Succinate Xl 50 Mg Tab) 50 mg PO DAILY [facility] Last Admin: 05/01/20 10:39 Dose: 50 mg Documented by: Vital Signs & Weight: Vital Signs Temp Pulse Pulse Pulse Resp BP BP 05/01/20 11:45 97.8 F 90 16 05/01/20 10:38 101 H 05/01/20 10:06 106 H 101 H 157/77 H 05/01/20 07:47 144 H 189/79 H 05/01/20 07:26 98.3 F 144 H 17 05/01/20 03:32 97.7 F 95 22 H BP BP Pulse Ox 05/01/20 11:45 142/65 H 95 05/01/20 10:38 05/01/20 10:06 166/74 H 05/01/20 07:47 05/01/20 07:26 189/79 H 95 05/01/20 03:32 138/67 95 Weight 186 lb 4.8 oz - Physical Exam General: alert & oriented x3, appears well, no apparent distress HEENT: mucus membranes moist Neck: supple neck Cardiac: other (IRR IRR) Lungs: clear to auscultation, no wheeze, rales, rhonchi Neuro: grossly intact Abdomen: soft Extremities: no edema Skin: clear Musculoskeletal: no pain - Labs Result Diagrams: 04/29/20 21:07 04/30/20 18:41 Troponin/CKMB Troponin I Less than 0.010 ng/mL (< 0.028) 04/29/20 01:49 - Assessment/Plan Assessment/Plan: 1. Paroxymal AF 2. Bradycardia 3. ANDREA 4. Sepsis Renal function slowly improving. Will adjust Eliquis pending Cr response. Patient now on Amio. Will continue to monitor for geovani. BP also elevated. Increase Norvasc.
[2020-05-01 13:56] LABS: #Basophils 0.1 thou/uL (0.0-0.2); #Eosinphils 0.2 thou/uL (0.0-0.7); #Lymphocytes 1.5 thou/uL (1.20-3.40); #Monocytes 1.1 thou/uL (0.11-0.59); #Neutrophils 10.3 thou/uL (1.40-6.50); %Basophils 0.4 % (0.0-1.0); %Eosinophils 1.6 % (0.0-10.0); %Lymphocytes 11.5 % (21.0-51.0); %Monocytes 8.7 % (0.0-10.0); %Neutrophils 77.9 % (42.0-75.0); Hemoglobin 12.1 g/dL (12.0-16.0); Mean Corpuscular HGB CONC 33.6 g/dL (32.0-36.0); Mean Corpuscular Hemoglobin 31.7 pg (27.0-31.0); Mean Corpuscular Volume 94.4 fL (78.0-98.0); Mean Platelet Volume 6.5 fL (7.4-10.4); Platelet Count 373 thou/uL (130-400); RBC Distribution Width 12.7 % (11.5-14.5); Red Blood Cell (RBC) Count 3.82 mill/uL (4.20-5.40); White Blood Cell (WBC) Count 13.2 thou/uL (4.8-10.8)
[2020-05-01 14:15] LABS: Anion Gap 14 mmol/L (10-20); BUN (Urea Nitrogen) 17 mg/dL (9.8-20.1); Calc. Creatinine Clearance 48 mL/min (70-130); Calcium 8.8 mg/dL (7.8-10.44); Carbon Dioxide 24 mmol/L (23-31); Chloride 102 mmol/L (98-107); Estimated GFR-MDRD 45; Glucose 115 mg/dL (83-110); Potassium 3.7 mmol/L (3.5-5.1); Sodium 136 mmol/L (136-145)
--- NOTE | 2020-05-01 14:57 | PRG ---
DATE OF SERVICE: 05/01/2020 OBJECTIVE: GENERAL: Elderly female, in no apparent distress. VITAL SIGNS: Temperature 97.8, pulse 90, blood pressure 142/65. ASSESSMENT AND PLAN: 1. Acute kidney injury on chronic kidney disease stage 3. Recheck labs. 2. Hyponatremia. 3. Acidosis. 4. Anemia of chronic disease. 5. Hypertension. Recheck labs. Avoid nephrotoxins. Monitor labs. Job ID: [id number]
[2020-05-02] MEDS: Digoxin 0.25 MG TAB PO SCH (03:05)
[2020-05-02 04:32] LABS: #Eosinphils 0.2 thou/uL (0.0-0.7); #Lymphocytes 1.3 thou/uL (1.20-3.40); #Monocytes 1.2 thou/uL (0.11-0.59); #Neutrophils 8.5 thou/uL (1.40-6.50); %Basophils 0.2 % (0.0-1.0); %Eosinophils 1.7 % (0.0-10.0); %Lymphocytes 11.2 % (21.0-51.0); %Monocytes 10.4 % (0.0-10.0); %Neutrophils 76.5 % (42.0-75.0); Hemoglobin 12.1 g/dL (12.0-16.0); Mean Corpuscular HGB CONC 33.6 g/dL (32.0-36.0); Mean Corpuscular Hemoglobin 31.9 pg (27.0-31.0); Mean Corpuscular Volume 94.7 fL (78.0-98.0); Mean Platelet Volume 6.8 fL (7.4-10.4); Platelet Count 384 thou/uL (130-400); RBC Distribution Width 12.6 % (11.5-14.5); Red Blood Cell (RBC) Count 3.79 mill/uL (4.20-5.40); White Blood Cell (WBC) Count 11.1 thou/uL (4.8-10.8)
[2020-05-02 04:59] LABS: Anion Gap 14 mmol/L (10-20); BUN (Urea Nitrogen) 14 mg/dL (9.8-20.1); Calc. Creatinine Clearance 52 mL/min (70-130); Calcium 9.1 mg/dL (7.8-10.44); Carbon Dioxide 24 mmol/L (23-31); Chloride 100 mmol/L (98-107); Estimated GFR-MDRD 50; Glucose 105 mg/dL (83-110); Potassium 3.5 mmol/L (3.5-5.1); Sodium 134 mmol/L (136-145)
[2020-05-02] MEDS: Levothyroxine Sodium 75 MCG TAB PO SCH ×2 (05:12→05:15)
[2020-05-02] MEDS ORDERED: Losartan 25 MG TAB PO SCH (09:00)
[2020-05-02] MEDS ORDERED: Apixaban 2.5 MG TAB PO SCH (09:00)
[2020-05-02] MEDS: Atorvastatin Calcium 20 MG TAB PO SCH (09:45)
[2020-05-02] MEDS: Amlodipine 5 MG TAB PO SCH ×2 (09:46→20:47)
[2020-05-02] MEDS: Amiodarone 200 MG TAB PO SCH ×2 (09:47→20:47)
[2020-05-02] MEDS: Apixaban 5 MG TAB PO SCH ×2 (09:47→20:47)
[2020-05-02] MEDS: Bupropion 100 MG SR TAB PO SCH (09:47)
[2020-05-02] MEDS: cefTRIAXone\\ROCEPHIN 2 GM in Sodium Chloride 0.9% 100 ML IVPB SCH (09:48)
--- NOTE | 2020-05-02 14:43 | PDOC.HOSPP ---
- Subjective Encounter Date: 05/02/20 Subjective: No new complaints - Objective Vital Signs & Weight: Vital Signs (12 hours) Temp Pulse Resp BP Pulse Ox 05/02/20 12:00 98.9 F 87 16 152/67 H 96 05/02/20 09:46 99 05/02/20 08:00 96.8 F L 99 16 146/79 H 99 05/02/20 03:08 98.3 F 84 18 156/74 H 96 Weight Weight 179 lb 8 oz I&O: 05/01/20 05/02/20 05/03/20 06:59 06:59 06:59 Intake Total 950 904 Output Total 2300 1800 Balance -9660 -416 Result Diagrams: 05/02/20 03:47 05/02/20 03:46 Hospitalist ROS - Medication Medications: Active Medications Generic Name Dose Route Start Last Admin Trade Name Freq PRN Reason Stop Dose Admin Hydrocodone Bitart/Acetaminophen 1 tab 04/28/20 21:03 04/30/20 21:39 Hydrocodone/Acetaminophen 5/325 Mg Tablet PO 1 tab Q4H PRN Administration Moderate Pain (4-6) Albuterol/Ipratropium 3 ml 04/29/20 20:22 04/29/20 20:45 Ipratropium/Albuterol Sulfate 3 Ml Neb NEB 3 ml [id number] PRN Administration Wheezing Amiodarone HCl 400 mg 05/02/20 09:00 05/02/20 09:47 Amiodarone 200 Mg Tab PO 400 mg BID [facility] Administration Amlodipine Besylate 5 mg 05/01/20 21:00 05/02/20 09:46 Amlodipine 5 Mg Tab PO 5 mg BID [facility] Administration Apixaban 5 mg 05/02/20 09:00 05/02/20 09:47 Apixaban 5 Mg Tab PO 5 mg BID [facility] Administration Atorvastatin Calcium 20 mg 04/29/20 09:00 05/02/20 09:45 Atorvastatin Calcium 20 Mg Tab PO 20 mg DAILY [facility] Administration Bupropion HCl 100 mg 04/30/20 09:00 05/02/20 09:47 Bupropion 100 Mg Sr Tab PO 100 mg DAILY [facility] Administration Ceftriaxone Sodium 2 gm/ 100 mls @ 200 mls/hr 04/29/20 08:00 05/02/20 09:48 Sodium Chloride IVPB 100 mls Q24HR [facility] Administration Amiodarone HCl 450 mg/ 259 mls @ 0 mls/hr 04/30/20 19:15 05/01/20 21:33 Miscellaneous Medication 1 IVPB 259 mls each/ Dextrose/Water INF [facility] Administration Protocol As Directed Levothyroxine Sodium 75 mcg 04/29/20 06:00 05/02/20 05:15 Levothyroxine Sodium 75 Mcg Tab PO Not Given 0600 [facility] Losartan Potassium 50 mg 05/02/20 09:00 05/02/20 09:44 Losartan 25 Mg Tab PO 50 mg DAILY [facility] Administration - Exam General Appearance: awake alert ENT: normocephalic atraumatic Neck: supple, no JVD Heart: RRR Respiratory: normal chest expansion, no tachypnea Extremities: no cyanosis, no clubbing Neurological: cranial nerve grossly intact, no new deficit Hosp A/P (1) Sepsis Code(s): A41.9 - SEPSIS, UNSPECIFIED ORGANISM Status: Acute Qualifiers: Sepsis type: sepsis due to unspecified organism Sepsis acute organ dysfunction status: with acute organ dysfunction Severe sepsis acute organ dysfunction type: acute renal failure Acute renal failure type: unspecified Severe sepsis shock status: without septic shock Qualified Code(s): A41.9 - Sepsis, unspecified organism; R65.20 - Severe sepsis without septic shock; N17.9 - Acute kidney failure, unspecified (2) Sinus bradycardia Code(s): R00.1 - BRADYCARDIA, UNSPECIFIED Status: Acute (3) UTI (urinary tract infection) Status: Acute Qualifiers: Hematuria presence: without hematuria (4) CKD (chronic kidney disease), stage III Code(s): N18.3 - CHRONIC KIDNEY DISEASE, STAGE 3 (MODERATE) * DO NOT USE * Status: Chronic (5) HTN (hypertension) Code(s): I10 - ESSENTIAL (PRIMARY) HYPERTENSION Status: Chronic Qualifiers: Hypertension type: essential hypertension Qualified Code(s): I10 - Essential (primary) hypertension (6) Hypothyroidism Code(s): E03.9 - HYPOTHYROIDISM, UNSPECIFIED Status: Chronic (7) PAF (paroxysmal atrial fibrillation) Code(s): I48.0 - PAROXYSMAL ATRIAL FIBRILLATION Status: Chronic - Plan Sepsis secondary to UTI. Culture results showing growth of E. coli that is sensitive only to IV antibiotics. Continue antibiotics to complete a 7-day course of treatment. The patient can likely be discharged on 05/05. 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 Chest x-ray showing evidence of pulmonary edema. The patient was given a dose of Lasix which helped improve her respiratory status. Tachycardia improved after increasing the dose of the Toprol. The patient is also on amiodarone and Eliquis.
[2020-05-02] MEDS: Amiodarone HCl 450 MG in Dextrose 5% in Water 250 ML IVPB SCH (15:11)
[2020-05-03] MEDS: Amiodarone HCl 450 MG in Dextrose 5% in Water 250 ML IVPB SCH (03:13)
[2020-05-03 04:26] LABS: #Eosinphils 0.3 thou/uL (0.0-0.7); #Lymphocytes 1.8 thou/uL (1.20-3.40); #Monocytes 1.2 thou/uL (0.11-0.59); #Neutrophils 8.3 thou/uL (1.40-6.50); %Basophils 0.3 % (0.0-1.0); %Eosinophils 2.8 % (0.0-10.0); %Lymphocytes 15.5 % (21.0-51.0); %Monocytes 10.1 % (0.0-10.0); %Neutrophils 71.2 % (42.0-75.0); Hemoglobin 12.4 g/dL (12.0-16.0); Mean Corpuscular HGB CONC 33.5 g/dL (32.0-36.0); Mean Corpuscular Hemoglobin 31.8 pg (27.0-31.0); Mean Corpuscular Volume 94.8 fL (78.0-98.0); Mean Platelet Volume 6.5 fL (7.4-10.4); Platelet Count 413 thou/uL (130-400); RBC Distribution Width 12.8 % (11.5-14.5); Red Blood Cell (RBC) Count 3.89 mill/uL (4.20-5.40); White Blood Cell (WBC) Count 11.7 thou/uL (4.8-10.8)
[2020-05-03 04:48] LABS: Anion Gap 14 mmol/L (10-20); BUN (Urea Nitrogen) 13 mg/dL (9.8-20.1); Calc. Creatinine Clearance 46 mL/min (70-130); Carbon Dioxide 24 mmol/L (23-31); Chloride 101 mmol/L (98-107); Estimated GFR-MDRD 45; Glucose 97 mg/dL (83-110); Potassium 3.8 mmol/L (3.5-5.1); Sodium 135 mmol/L (136-145)
[2020-05-03] MEDS: Levothyroxine Sodium 75 MCG TAB PO SCH (05:14)
--- NOTE | 2020-05-03 06:52 | PDOC.CPN ---
- Subjective Date: 05/02/20 Time: 08:30 Interval history: No overnight events. Maintaining NSR on IV Amio. - Review of Systems General: denies: fever/chills, weight/appetite/sleep changes, night sweats, fatigue Respiratory: denies: cough, congestion, shortness of breath, exercise intolerance Cardiovascular: denies: chest pain, palpitation, edema, paroxysmal nocturnal dyspnea, orthopnea Gastrointestinal: denies: nausea, vomiting, diarrhea, constipation, abd pain, GI bleeding Musculoskeletal: denies: pain, tenderness, stiffness, swelling, arthritis/art hralgias Neurological: denies: numbness, syncope, seizure, weakness - Objective Allergies/Adverse Reactions: Allergies Allergy/AdvReac Type Severity Reaction Status Date / Time codeine Allergy Verified 04/28/20 23:47 niacin Allergy Verified 04/28/20 23:47 Penicillins Allergy Verified 04/28/20 23:47 Visit Medications: Current Medications Acetaminophen (Acetaminophen 325 Mg Tab) 650 mg PO Q4H PRN PRN Reason: Headache/Fever/Mild Pain (1-3) Acetaminophen (Acetaminophen 650 Mg Suppository) 650 mg [place] Q4H PRN PRN Reason: Headache/Fever/Mild Pain (1-3) Hydrocodone Bitart/Acetaminophen (Hydrocodone/Acetaminophen 5/325 Mg Tablet) 1 tab PO Q4H PRN PRN Reason: Moderate Pain (4-6) Last Admin: 04/30/20 21:39 Dose: 1 tab Documented by: Albuterol/Ipratropium (Ipratropium/Albuterol Sulfate 3 Ml Neb) 3 ml NEB [id number] PRN PRN Reason: Wheezing Last Admin: 04/29/20 20:45 Dose: 3 ml Documented by: Amiodarone HCl (Amiodarone 200 Mg Tab) 400 mg PO BID [facility] Last Admin: 05/02/20 20:47 Dose: 400 mg Documented by: Amlodipine Besylate (Amlodipine 5 Mg Tab) 5 mg PO BID [facility] Last Admin: 05/02/20 20:47 Dose: 5 mg Documented by: Apixaban (Apixaban 5 Mg Tab) 5 mg PO BID [facility] Last Admin: 05/02/20 20:47 Dose: 5 mg Documented by: Atorvastatin Calcium (Atorvastatin Calcium 20 Mg Tab) 20 mg PO DAILY [facility] Last Admin: 05/02/20 09:45 Dose: 20 mg Documented by: Bupropion HCl (Bupropion 100 Mg Sr Tab) 100 mg PO DAILY [facility] Last Admin: 05/02/20 09:47 Dose: 100 mg Documented by: Calcium Carbonate (Calcium Carbonate 500 Mg Chewtab) 1,000 mg PO Q4H PRN PRN Reason: Heartburn or Indigestion Ceftriaxone Sodium 2 gm/ (Sodium Chloride) 100 mls @ 200 mls/hr IVPB Q24HR [facility] Last Admin: 05/02/20 09:48 Dose: 100 mls Documented by: Amiodarone HCl 450 mg/Miscellaneous Medication 1 each/ Dextrose/Water 259 mls @ 0 mls/hr IVPB INF [facility]; Protocol Last Admin: 05/03/20 03:13 Dose: 259 mls Documented by: Levothyroxine Sodium (Levothyroxine Sodium 75 Mcg Tab) 75 mcg PO 0600 [facility] Last Admin: 05/03/20 05:14 Dose: 75 mcg Documented by: Losartan Potassium (Losartan 25 Mg Tab) 50 mg PO DAILY [facility] Last Admin: 05/02/20 09:44 Dose: 50 mg Documented by: Metoprolol Succinate (Metoprolol Succinate Xl 50 Mg Tab) 50 mg PO 1700 [facility] Last Admin: 05/02/20 17:03 Dose: 50 mg Documented by: Vital Signs & Weight: Vital Signs Temp Pulse Resp BP Pulse Ox 05/03/20 03:08 99.2 F 83 16 158/70 H 95 05/02/20 19:35 97.7 F 81 18 165/70 H 97 Weight 180 lb - Physical Exam General: alert & oriented x3, appears well, no apparent distress HEENT: mucus membranes moist Neck: supple neck Cardiac: regular rate and rhythm Lungs: normal exam, no wheeze, rales, rhonchi Neuro: grossly intact Abdomen: soft Skin: clear Musculoskeletal: no pain - Labs Result Diagrams: 05/03/20 04:04 05/03/20 04:04 Troponin/CKMB Troponin I Less than 0.010 ng/mL (< 0.028) 04/29/20 01:49 - Assessment/Plan Assessment/Plan: 1. Paroxymal AF 2. Bradycardia requiring atropine (patient on toprol and cardizem) 3. ANDREA 4. Sepsis 5. HTN Patient maintaining NSR on IV Amio. Will transition to PO. Resume losartan at 50mg daily. Increase Eliquis back to full dosing given normal renal function. Hopefully home soon.
[2020-05-03] MEDS: Amiodarone 200 MG TAB PO SCH ×2 (09:13→22:42)
[2020-05-03] MEDS: Atorvastatin Calcium 20 MG TAB PO SCH (09:14)
[2020-05-03] MEDS: Apixaban 5 MG TAB PO SCH ×2 (09:14→22:41)
[2020-05-03] MEDS: Losartan 25 MG TAB PO SCH (09:14)
[2020-05-03] MEDS: Bupropion 100 MG SR TAB PO SCH (09:14)
[2020-05-03] MEDS: Amlodipine 5 MG TAB PO SCH ×2 (09:14→22:41)
[2020-05-03] MEDS: cefTRIAXone\\ROCEPHIN 2 GM in Sodium Chloride 0.9% 100 ML IVPB SCH (09:15)
--- NOTE | 2020-05-03 15:10 | PDOC.HOSPP ---
- Subjective Encounter Date: 05/03/20 - Objective Vital Signs & Weight: Vital Signs (12 hours) Temp Pulse Resp BP Pulse Ox 05/03/20 11:40 97.7 F 81 14 169/72 H 97 05/03/20 07:50 98.1 F 89 18 175/72 H 98 Weight Weight 180 lb I&O: 05/02/20 05/03/20 05/04/20 06:59 06:59 06:59 Intake Total 904 1061 Output Total 1800 550 Balance -896 511 Result Diagrams: 05/03/20 04:04 05/03/20 04:04 Hospitalist ROS - Medication Medications: Active Medications Generic Name Dose Route Start Last Admin Trade Name Freq PRN Reason Stop Dose Admin Hydrocodone Bitart/Acetaminophen 1 tab 04/28/20 21:03 04/30/20 21:39 Hydrocodone/Acetaminophen 5/325 Mg Tablet PO 1 tab Q4H PRN Administration Moderate Pain (4-6) Albuterol/Ipratropium 3 ml 04/29/20 20:22 04/29/20 20:45 Ipratropium/Albuterol Sulfate 3 Ml Neb NEB 3 ml [id number] PRN Administration Wheezing Amiodarone HCl 400 mg 05/02/20 09:00 05/03/20 09:13 Amiodarone 200 Mg Tab PO 400 mg BID [facility] Administration Amlodipine Besylate 5 mg 05/01/20 21:00 05/03/20 09:14 Amlodipine 5 Mg Tab PO 5 mg BID [facility] Administration Apixaban 5 mg 05/02/20 09:00 05/03/20 09:14 Apixaban 5 Mg Tab PO 5 mg BID [facility] Administration Atorvastatin Calcium 20 mg 04/29/20 09:00 05/03/20 09:14 Atorvastatin Calcium 20 Mg Tab PO 20 mg DAILY [facility] Administration Bupropion HCl 100 mg 04/30/20 09:00 05/03/20 09:14 Bupropion 100 Mg Sr Tab PO 100 mg DAILY [facility] Administration Ceftriaxone Sodium 2 gm/ 100 mls @ 200 mls/hr 04/29/20 08:00 05/03/20 09:15 Sodium Chloride IVPB 100 mls Q24HR [facility] Administration Levothyroxine Sodium 75 mcg 04/29/20 06:00 05/03/20 05:14 Levothyroxine Sodium 75 Mcg Tab PO 75 mcg 0600 [facility] Administration Losartan Potassium 100 mg 05/03/20 08:00 05/03/20 09:14 Losartan 25 Mg Tab PO 100 mg 0800 [facility] Administration Metoprolol Succinate 50 mg 05/02/20 17:00 05/02/20 17:03 Metoprolol Succinate Xl 50 Mg Tab PO 50 mg 1700 [facility] Administration - Exam General Appearance: awake alert ENT: normocephalic atraumatic Neck: supple, no JVD Heart: RRR, no murmur, no gallops, no rubs Gastrointestinal: soft, non-tender Neurological: cranial nerve grossly intact, no focal deficits Hosp A/P (1) Sepsis Code(s): A41.9 - SEPSIS, UNSPECIFIED ORGANISM Status: Acute Qualifiers: Sepsis type: sepsis due to unspecified organism Sepsis acute organ dysfunction status: with acute organ dysfunction Severe sepsis acute organ dysfunction type: acute renal failure Acute renal failure type: unspecified Severe sepsis shock status: without septic shock Qualified Code(s): A41.9 - Sepsis, unspecified organism; R65.20 - Severe sepsis without septic shock; N17.9 - Acute kidney failure, unspecified (2) Sinus bradycardia Code(s): R00.1 - BRADYCARDIA, UNSPECIFIED Status: Acute (3) UTI (urinary tract infection) Status: Acute Qualifiers: Hematuria presence: without hematuria (4) CKD (chronic kidney disease), stage III Code(s): N18.3 - CHRONIC KIDNEY DISEASE, STAGE 3 (MODERATE) * DO NOT USE * Status: Chronic (5) HTN (hypertension) Code(s): I10 - ESSENTIAL (PRIMARY) HYPERTENSION Status: Chronic Qualifiers: Hypertension type: essential hypertension Qualified Code(s): I10 - Essential (primary) hypertension (6) Hypothyroidism Code(s): E03.9 - HYPOTHYROIDISM, UNSPECIFIED Status: Chronic (7) PAF (paroxysmal atrial fibrillation) Code(s): I48.0 - PAROXYSMAL ATRIAL FIBRILLATION Status: Chronic - Plan Sepsis secondary to UTI. Culture results showing growth of E. coli that is sensitive only to IV antibiotics. Continue antibiotics to complete a 7-day course of treatment. The patient can likely be discharged on 05/05. 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 Chest x-ray showing evidence of pulmonary edema. The patient was given a dose of Lasix which helped improve her respiratory status. Tachycardia improved after increasing the dose of the Toprol. The patient is also on amiodarone and Eliquis. Patient denies any new complaints today. Continues to work with PT and OT.
[2020-05-03] MEDS ORDERED: ALPRAZolam 0.25 MG TAB PO SCH (22:15)
[2020-05-04 05:15] LABS: #Eosinphils 0.3 thou/uL (0.0-0.7); #Lymphocytes 1.5 thou/uL (1.20-3.40); #Monocytes 1.3 thou/uL (0.11-0.59); #Neutrophils 6.7 thou/uL (1.40-6.50); %Basophils 0.3 % (0.0-1.0); %Eosinophils 2.9 % (0.0-10.0); %Lymphocytes 15.1 % (21.0-51.0); %Monocytes 13.4 % (0.0-10.0); %Neutrophils 68.3 % (42.0-75.0); Hemoglobin 11.7 g/dL (12.0-16.0); Mean Corpuscular Hemoglobin 32.2 pg (27.0-31.0); Mean Corpuscular Volume 94.7 fL (78.0-98.0); Mean Platelet Volume 6.7 fL (7.4-10.4); Platelet Count 353 thou/uL (130-400); RBC Distribution Width 12.7 % (11.5-14.5); Red Blood Cell (RBC) Count 3.65 mill/uL (4.20-5.40); White Blood Cell (WBC) Count 9.7 thou/uL (4.8-10.8)
[2020-05-04 05:36] LABS: Anion Gap 15 mmol/L (10-20); BUN (Urea Nitrogen) 14 mg/dL (9.8-20.1); Calc. Creatinine Clearance 43 mL/min (70-130); Calcium 8.6 mg/dL (7.8-10.44); Carbon Dioxide 23 mmol/L (23-31); Chloride 101 mmol/L (98-107); Estimated GFR-MDRD 41; Glucose 91 mg/dL (83-110); Potassium 3.5 mmol/L (3.5-5.1); Sodium 135 mmol/L (136-145)
[2020-05-04] MEDS: Levothyroxine Sodium 75 MCG TAB PO SCH (06:01)
[2020-05-04] MEDS: Losartan 25 MG TAB PO SCH (08:40)
[2020-05-04] MEDS: cefTRIAXone\\ROCEPHIN 2 GM in Sodium Chloride 0.9% 100 ML IVPB SCH (08:40)
[2020-05-04] MEDS: Amlodipine 5 MG TAB PO SCH ×2 (08:41→21:10)
[2020-05-04] MEDS: Apixaban 5 MG TAB PO SCH ×2 (08:41→21:10)
[2020-05-04] MEDS: Atorvastatin Calcium 20 MG TAB PO SCH (08:41)
[2020-05-04] MEDS: Amiodarone 200 MG TAB PO SCH ×2 (08:41→21:10)
[2020-05-04] MEDS: Bupropion 100 MG SR TAB PO SCH (08:41)
--- NOTE | 2020-05-04 09:48 | PRG ---
DATE OF SERVICE: 05/04/2020 SUBJECTIVE: Ms. Merritt is awake and alert. Feels well. OBJECTIVE: VITAL SIGNS: Blood pressure is 157/68, pulse 64 and regular. LUNGS: Clear. CARDIAC: Normal S1, normal S2. ABDOMEN: Soft and nontender. ASSESSMENT: 1. Paroxysmal atrial fibrillation with a rapid rate controlled. 2. History of bradycardia, on diltiazem and metoprolol. PLAN: 1. She is on amiodarone 400 mg twice a day, can reduce to 200 mg twice a day when she goes home for one month, then 200 mg once a day. 2. Continue metoprolol 50 mg a day. 3. Could be released home at any time from my standpoint. Job ID: [id number]
--- NOTE | 2020-05-04 20:09 | PDOC.HOSPP ---
- Subjective Encounter Date: 05/04/20 Subjective: She is stable for DC tomorrow once she finishes her ABX course. - Objective Vital Signs & Weight: Vital Signs (12 hours) Temp Pulse Pulse Pulse Resp BP BP 05/04/20 15:43 98.7 F 85 16 05/04/20 13:30 05/04/20 11:10 99.0 F 88 16 05/04/20 11:03 84 80 168/74 H 163/70 H BP Pulse Ox Pulse Ox 05/04/20 15:43 145/68 H 95 05/04/20 13:30 96 05/04/20 11:10 163/70 H 96 05/04/20 11:03 96 Weight Weight 174 lb 12.8 oz I&O: 05/03/20 05/04/20 05/05/20 06:59 06:59 06:59 Intake Total 1061 880 580 Output Total 550 500 Balance 511 380 580 Result Diagrams: 05/04/20 04:46 05/04/20 04:46 Hospitalist ROS - Medication Medications: Active Medications Generic Name Dose Route Start Last Admin Trade Name Freq PRN Reason Stop Dose Admin Hydrocodone Bitart/Acetaminophen 1 tab 04/28/20 21:03 04/30/20 21:39 Hydrocodone/Acetaminophen 5/325 Mg Tablet PO 1 tab Q4H PRN Administration Moderate Pain (4-6) Albuterol/Ipratropium 3 ml 04/29/20 20:22 04/29/20 20:45 Ipratropium/Albuterol Sulfate 3 Ml Neb NEB 3 ml [id number] PRN Administration Wheezing Amiodarone HCl 400 mg 05/02/20 09:00 05/04/20 08:41 Amiodarone 200 Mg Tab PO 400 mg BID GLIES Administration Amlodipine Besylate 5 mg 05/01/20 21:00 05/04/20 08:41 Amlodipine 5 Mg Tab PO 5 mg BID GILES Administration Apixaban 5 mg 05/02/20 09:00 05/04/20 08:41 Apixaban 5 Mg Tab PO 5 mg BID GILES Administration Atorvastatin Calcium 20 mg 04/29/20 09:00 05/04/20 08:41 Atorvastatin Calcium 20 Mg Tab PO 20 mg DAILY GILES Administration Bupropion HCl 100 mg 04/30/20 09:00 05/04/20 08:41 Bupropion 100 Mg Sr Tab PO 100 mg DAILY GILES Administration Ceftriaxone Sodium 2 gm/ 100 mls @ 200 mls/hr 04/29/20 08:00 05/04/20 08:40 Sodium Chloride IVPB 100 mls Q24HR GILES Administration Levothyroxine Sodium 75 mcg 04/29/20 06:00 05/04/20 06:01 Levothyroxine Sodium 75 Mcg Tab PO 75 mcg 0600 GILES Administration Losartan Potassium 100 mg 05/03/20 08:00 05/04/20 08:40 Losartan 25 Mg Tab PO 100 mg 0800 GILES Administration Metoprolol Succinate 50 mg 05/02/20 17:00 05/04/20 17:03 Metoprolol Succinate Xl 50 Mg Tab PO 50 mg 1700 GILES Administration - Exam General Appearance: awake alert ENT: normocephalic atraumatic Neck: supple Heart: RRR Respiratory: normal chest expansion, no tachypnea Gastrointestinal: soft Extremities: no cyanosis Neurological: cranial nerve grossly intact, no focal deficits Hosp A/P (1) Sepsis Code(s): A41.9 - SEPSIS, UNSPECIFIED ORGANISM Status: Acute Qualifiers: Sepsis type: sepsis due to unspecified organism Sepsis acute organ dysfunction status: with acute organ dysfunction Severe sepsis acute organ dysfunction type: acute renal failure Acute renal failure type: unspecified Severe sepsis shock status: without septic shock Qualified Code(s): A41.9 - Sepsis, unspecified organism; R65.20 - Severe sepsis without septic shock; N17.9 - Acute kidney failure, unspecified (2) Sinus bradycardia Code(s): R00.1 - BRADYCARDIA, UNSPECIFIED Status: Acute (3) UTI (urinary tract infection) Status: Acute Qualifiers: Hematuria presence: without hematuria (4) CKD (chronic kidney disease), stage III Code(s): N18.3 - CHRONIC KIDNEY DISEASE, STAGE 3 (MODERATE) * DO NOT USE * Status: Chronic (5) HTN (hypertension) Code(s): I10 - ESSENTIAL (PRIMARY) HYPERTENSION Status: Chronic Qualifiers: Hypertension type: essential hypertension Qualified Code(s): I10 - Essential (primary) hypertension (6) Hypothyroidism Code(s): E03.9 - HYPOTHYROIDISM, UNSPECIFIED Status: Chronic (7) PAF (paroxysmal atrial fibrillation) Code(s): I48.0 - PAROXYSMAL ATRIAL FIBRILLATION Status: Chronic - Plan Sepsis secondary to UTI. Culture results showing growth of E. coli that is sensitive only to IV antibiotics. Continue antibiotics to complete a 7-day course of treatment. The patient can be discharged on 05/05. 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 Chest x-ray showing evidence of pulmonary edema. The patient was given a dose of Lasix which helped improve her respiratory status. Tachycardia improved after increasing the dose of the Toprol. The patient is al so on amiodarone and Eliquis.
[2020-05-05 04:29] LABS: #Eosinphils 0.3 thou/uL (0.0-0.7); #Lymphocytes 1.4 thou/uL (1.20-3.40); #Monocytes 1.2 thou/uL (0.11-0.59); #Neutrophils 6.3 thou/uL (1.40-6.50); %Basophils 0.4 % (0.0-1.0); %Eosinophils 3.3 % (0.0-10.0); %Lymphocytes 15.1 % (21.0-51.0); %Monocytes 12.7 % (0.0-10.0); %Neutrophils 68.5 % (42.0-75.0); Hemoglobin 11.3 g/dL (12.0-16.0); Mean Corpuscular HGB CONC 34.1 g/dL (32.0-36.0); Mean Corpuscular Hemoglobin 32.6 pg (27.0-31.0); Mean Corpuscular Volume 95.8 fL (78.0-98.0); Mean Platelet Volume 6.8 fL (7.4-10.4); Platelet Count 316 thou/uL (130-400); RBC Distribution Width 12.5 % (11.5-14.5); Red Blood Cell (RBC) Count 3.45 mill/uL (4.20-5.40); White Blood Cell (WBC) Count 9.1 thou/uL (4.8-10.8)
[2020-05-05 04:45] LABS: Anion Gap 12 mmol/L (10-20); BUN (Urea Nitrogen) 11 mg/dL (9.8-20.1); Calc. Creatinine Clearance 45 mL/min (70-130); Calcium 8.6 mg/dL (7.8-10.44); Carbon Dioxide 26 mmol/L (23-31); Chloride 103 mmol/L (98-107); Estimated GFR-MDRD 45; Glucose 96 mg/dL (83-110); Potassium 3.2 mmol/L (3.5-5.1); Sodium 138 mmol/L (136-145)
[2020-05-05] MEDS: Levothyroxine Sodium 75 MCG TAB PO SCH (05:03)
[2020-05-05] MEDS ORDERED: Potassium Chloride 20 MEQ TAB PO SCH (08:30)
[2020-05-05] MEDS: Apixaban 5 MG TAB PO SCH (09:15)
[2020-05-05] MEDS: Amiodarone 200 MG TAB PO SCH (09:15)
[2020-05-05] MEDS: Bupropion 100 MG SR TAB PO SCH (09:15)
[2020-05-05] MEDS: Amlodipine 5 MG TAB PO SCH (09:16)
[2020-05-05] MEDS: Atorvastatin Calcium 20 MG TAB PO SCH (09:19)
[2020-05-05] MEDS: Losartan 25 MG TAB PO SCH (09:19)
[2020-05-05] MEDS: cefTRIAXone\\ROCEPHIN 2 GM in Sodium Chloride 0.9% 100 ML IVPB SCH (09:20)
--- NOTE | 2020-05-05 10:25 | PRG ---
DATE OF SERVICE: 05/05/2020 SUBJECTIVE: Ms. Merritt is feeling well. She is awake and alert. OBJECTIVE: VITAL SIGNS: Blood pressure 164/71; pulse 90 recorded, but then 68 on the monitor, sinus. LUNGS: Clear. CARDIAC: Normal S1 and normal S2. ABDOMEN: Soft and nontender. EXTREMITIES: No edema. ASSESSMENT: 1. Paroxysmal atrial fibrillation and flutter, now in sinus rhythm. 2. History of bradycardia. 3. Urinary tract infection. PLAN: 1. Okay to me to go home on amiodarone 200 mg twice a day for one month and then 200 mg once a day. 2. Amlodipine 5 mg twice a day. 3. Losartan 100 mg a day. 4. Metoprolol succinate 50 mg a day. 5. She was taken off the diltiazem. Job ID: [id number]
[2020-05-05 12:50] VITALS: BP 154/67; TEMP 96.6
[2020-05-05] MEDS ORDERED: Amiodarone 200 MG TAB PO SCH (18:00)
--- NOTE | 2020-05-06 03:17 | DIS ---
DATE OF ADMISSION: 04/28/2020 DATE OF DISCHARGE: 05/05/2020 DISCHARGE DIAGNOSES: 1. Urinary tract infection due to Escherichia coli. 2. Sepsis. 3. Paroxysmal atrial fibrillation. 4. Bradycardia. 5. Hypertension. 6. Hypothyroidism. 7. Chronic kidney disease. DISCHARGE MEDICATIONS: The patient will continue her current home medications with the addition of amiodarone 200 mg orally daily and discontinuation of diltiazem due to bradycardia. HISTORY OF PRESENT ILLNESS AND HOSPITAL COURSE: The patient is an 84-year-old female with past medical history of hypertension; hyperlipidemia; hypothyroidism; and atrial fibrillation, on anticoagulation, who presented to the hospital. The patient was brought to the hospital with complaints of altered mental status and shortness of breath. She was found to be bradycardic in the ER. Initial evaluation revealed presence of sepsis from a urinary source. The patient was started on empiric IV antibiotics and her urine culture revealed growth of E coli, sensitive only to IV medications. She completed 7 days of IV antibiotics in the hospital and her sepsis has resolved. As far as her bradycardia, this was resolved after holding her chronotropic medications for the first 24 hours. Subsequently, the patient became tachycardic and her metoprolol was restarted. Cardiology also started the patient on amiodarone. Her anticoagulation was continued. The patient's condition improved gradually and she was asymptomatic on the day of discharge. Job ID: [id number]
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
--- NOTE | 2020-05-07 05:35 | PQF ---
CLINICAL DOCUMENTATION CLARIFICATION FORM: Dear : Trice Anaya Date / Time: 05/07/2020 05:35 Please exercise your independent, professional judgment in responding to the clarification form. Clinical indicators are provided on the bottom of this form for your review Can you please clarify the acuity of patients pulmonary edema? Please check appropriate box(es): [> ] Acute pulmonary edema [ ] Chronic pulmonary edema [ ] Other diagnosis, please specify: [ ] Unable to determine Physician Signature: Date/Time: For continuity of documentation, please document condition throughout progress notes and discharge summary. Thank You. To be completed by CDI/Coding staff for physician review: Present Clinical Indicators - Signs / Symptoms / Labs Results and Location in Medical Record [x] Chest Xray showing evidence of pulmonary edema PN 05/04 [x] Tachycardia PN 05/02 [x] Shortness of breath Consult 04/29 [x] Edema PN 04/30 [x] Cardiorenal syndrome PN 04/30 [x] Chest Xray: bibasilar atelectasis vs infilrates Chest Xray 04/29 Present Risk Factors Results and Location in Medical Record [x] 84 years old female ED Notes 04/28 [x] Afib ED Notes 04/28 [x] HTN ED Notes 04/28 [x] Sepsis DS 05/05 [x] CKD DS 05/05 [x] JEF PN 05/03 Present Treatments Results and Location in Medical Record [x] Cardiolgy Consult Consult 04/28 [x] Nephrology Consult Consult 04/28 [x] Furosemide 20mg IV MAR 04/30 CDS/Recovery Agent Signature: Che Waters Phone #: [phone] Date/Time: 05/07/2020 05:35 This is a permanent part of the Medical Record [facility]
--- NOTE | 2020-05-07 15:24 | EKG ---
Test Reason : Blood Pressure : / mmHG Vent. Rate : 052 BPM Atrial Rate : 052 BPM P-R Int : 188 ms QRS Dur : 104 ms QT Int : 450 ms P-R-T Axes : 066 032 059 degrees QTc Int : 418 ms Sinus bradycardia Incomplete right bundle branch block Borderline ECG Confirmed by AQUILES RUIZ, GARY Antonio ([id number]), proposal editor JUDIE YANEZ ([id number]) on 05/07/2020 3:24:24 PM Referred By: Confirmed By:GARY KWAN MD
== END 2020-05-05 13:10 | disposition home health service (06) | DRG 871 ==
LOC: ERS 17:29 → 2NO 21:03
PROVIDERS: ADMIT Student in an Organized Health Care Education/Training Program; ATTEND Internal Medicine
DX: A41.51 Sepsis due to Escherichia coli [E. coli] (principal); G93.41 Metabolic encephalopathy; J81.0 Acute pulmonary edema; E87.1 Hypo-osmolality and hyponatremia; N17.9 Acute kidney failure, unspecified; N39.0 Urinary tract infection, site not specified; E87.2 Acidosis; Z20.828 Contact with and (suspected) exposure to other viral communicable diseases; I48.0 Paroxysmal atrial fibrillation; E03.9 Hypothyroidism, unspecified; E78.5 Hyperlipidemia, unspecified; N18.30 Chronic kidney disease, stage 3 unspecified; R65.20 Severe sepsis without septic shock; F03.90 Unspecified dementia, unspecified severity, without behavioral disturbance, psychotic disturbance, mood disturbance, and anxiety; Z96.659 Presence of unspecified artificial knee joint; I25.10 Atherosclerotic heart disease of native coronary artery without angina pectoris; I13.10 Hypertensive heart and chronic kidney disease without heart failure, with stage 1 through stage 4 chronic kidney disease, or unspecified chronic kidney disease; D63.1 Anemia in chronic kidney disease; R00.0 Tachycardia, unspecified; Z90.49 Acquired absence of other specified parts of digestive tract; Z90.721 Acquired absence of ovaries, unilateral; Z88.5 Allergy status to narcotic agent; Z88.0 Allergy status to penicillin; Z88.8 Allergy status to other drugs, medicaments and biological substances; Z79.01 Long term (current) use of anticoagulants; Z79.899 Other long term (current) drug therapy
CPT/HCPCS: 36415; 36600; 71045; 76770; 80048; 80053; 80076; 81003; 81015; 82805; 83605; 83735; 83880; 84132; 84443; 84484; 85007; 85025; 85027; 85379; 85610; 85730; 87040; 87077; 87086; 87186; 87635; 93005; 93306; 94640; 96365; 96366; 96367; 96375; J0282; J0461; J0696; J1940; J2405; J3370; J3490; J7070; J7620; U0003

== ENCOUNTER 2020-11-05 19:01 | Inpatient (IN) | payer MEDICARE, BC ==
[2020-11-05] MEDS ORDERED: Rocuronium Bromide 10 MG/ML (10ML VIAL) ONE (19:14)
[2020-11-05 19:24] LABS: #Eosinphils 0.1 thou/uL (0.0-0.7); #Lymphocytes 2.5 thou/uL (1.20-3.40); #Monocytes 1.6 thou/uL (0.11-0.59); #Neutrophils 12.9 thou/uL (1.40-6.50); %Basophils 0.1 % (0.0-1.0); %Eosinophils 0.8 % (0.0-10.0); %Lymphocytes 14.5 % (21.0-51.0); %Monocytes 9.4 % (0.0-10.0); %Neutrophils 75.2 % (42.0-75.0); Hemoglobin 11.9 g/dL (12.0-16.0); Mean Corpuscular HGB CONC 34.3 g/dL (32.0-36.0); Mean Corpuscular Hemoglobin 32.9 pg (27.0-31.0); Mean Corpuscular Volume 96.1 fL (78.0-98.0); Mean Platelet Volume 6.7 fL (7.4-10.4); Platelet Count 387 thou/uL (130-400); RBC Distribution Width 12.3 % (11.5-14.5); Red Blood Cell (RBC) Count 3.62 mill/uL (4.20-5.40); White Blood Cell (WBC) Count 17.1 thou/uL (4.8-10.8)
[2020-11-05] MEDS ORDERED: niCARdipine 20MG In NaCl 20 MG/200 ML BAG ONE (19:28)
[2020-11-05 19:41] LABS: Acetaminophen Less than 6.0 mcg/mL (10.0-30.0); Alcohol Less than 10 mg/dL (Less than 10); Salicylate Less than 8.0 mg/dL (15.0-30.0)
[2020-11-05 19:43] LABS: ALT (SGPT) 13 U/L (8-55); AST (SGOT) 18 U/L (5-34); Albumin 3.9 g/dL (3.4-4.8); Alkaline Phosphatase 75 U/L (40-110); Anion Gap 18 mmol/L (10-20); BUN (Urea Nitrogen) 14 mg/dL (9.8-20.1); Bilirubin, Total 0.6 mg/dL (0.2-1.2); CK (CPK) 32 U/L (29-168); Calc. Creatinine Clearance 0 mL/min (70-130); Calcium 9.1 mg/dL (7.8-10.44); Carbon Dioxide 18 mmol/L (23-31); Chloride 101 mmol/L (98-107); Globulin 2.6 g/dL (2.4-3.5); Glucose 150 mg/dL (83-110); Lipase 31 U/L (8-78); Potassium 3.8 mmol/L (3.5-5.1); Protein, Total 6.5 g/dL (5.8-8.1); Sodium 133 mmol/L (136-145)
[2020-11-05] MEDS ORDERED: Fentanyl CADD 100 ML IV SCH (19:45)
[2020-11-05 19:46] LABS: INR-International Normal Ratio 1.4; PTT 30.1 sec (22.9-36.1)
[2020-11-05] MEDS ORDERED: manNITOL 20% 0 ML ONE ×2 (19:48→19:53)
[2020-11-05 19:54] LABS: D-Dimer Test 6.35 *mcg/mL (0.27-0.43)
[2020-11-05] MEDS ORDERED: Mannitol 12.5 GM/50 ML ONE (19:55)
[2020-11-05] MEDS ORDERED: manNITOL 20% 500 ML ONE (19:57)
[2020-11-05 20:05] LABS: Bilirubin Negative (Negative); Blood, Urine Negative (Negative); Clarity Clear (Clear); Glucose, Urine (Dipstick) Normal (Negative); Ketone, Urine Negative (Negative); Leukocyte 250 Leu/uL (Negative); Nitrite Negative (Negative); Protein, Urine (Dipstick) Negative (Neg-Trace); RBC/HPF 0-3 HPF (0-3); Specific Gravity, Urine 1.011 (1.002-1.036); Squamous Epithelial 0-3 HPF (0-3); Urobilinogen Normal mg/dL (Less than 2)
[2020-11-05 20:06] LABS: Amphetamine Not Detected (NotDetected); Bacteria/HPF 1+ HPF (None Seen); Barbiturates Screen Not Detected (NotDetected); Benzodiazepine Screen Not Detected (NotDetected); Cocaine Metabolite Screen Not Detected (NotDetected); Medtox Control Line Valid? VALID (VALID); Medtox Reader # READER 4; Methadone Not Detected (NotDetected); Methamphetamine Not Detected (NotDetected); Opiate Screen Not Detected (NotDetected); Oxycodone Screen Not Detected (NotDetected); Phencyclidine (PCP) Not Detected (NotDetected); THC/Cannabinoid Screen Not Detected (NotDetected); Tricyclic Screen Not Detected (NotDetected)
[2020-11-05] MEDS ORDERED: levETIRAcetam in NS 0 ML ONE (20:22)
[2020-11-05 20:23] LABS: Actual Bicarbonate (HCO3a) 17.3 mEq/L (22-28); Analyzer IN Cardio ER; Base Excess (BEa) -2.1 mEq/L (-2.0 to +3.0); Calcium, Ionized (arterial) 1.09 mmol/L (1.12-1.30); Carboxyhemoglobin (COHb) 0.3 gm% (0.0-3.0); Hemoglobin (Hb) 10.9 g/dL (12.0-16.0); Potassium - ABG Lab 3.31 mmol/L (3.70-5.30)
[2020-11-05] MEDS ORDERED: levETIRAcetam in NS 100 ML ONE (20:23)
[2020-11-05 20:24] LABS: CO2 Tension 17.3 mmHg (35.0-45.0); pH, Arterial 7.62 (7.35-7.45)
[2020-11-05 20:25] LABS: ALV-art Gradient -132.125 mmHg (0-20); Puncture Site RRA
[2020-11-05] MEDS ORDERED: Acetaminophen 650 MG Suppository PR PRN (22:11)
[2020-11-05 22:13] LABS: SARS-CoV-2 NAA Rapid Test Not Detected (NotDetected)
[2020-11-05] MEDS ORDERED: Ventilator Sedation Protocol 1 EACH FS SCH (22:15)
[2020-11-05] MEDS ORDERED: Fentanyl BOLUS 250 ML IVPB PRN (22:30)
[2020-11-05] MEDS ORDERED: Propofol 1,000 MG/100 ML VIAL IV PRN (22:30)
[2020-11-05] MEDS ORDERED: Morphine 2 MG/ML VIAL SLOW IVP PRN (22:30)
[2020-11-05] MEDS ORDERED: DISCONTINUE PREVIOUS NARCOTIC PAIN MEDICATIONS AND BENZODIAZEPINES FS SCH (22:30)
[2020-11-05] MEDS ORDERED: Propofol BOLUS 1,000 MG/100 ML VIAL IV PRN (22:30)
[2020-11-05] MEDS ORDERED: Lorazepam 2 MG/ML VIAL SLOW IVP PRN (22:30)
[2020-11-05 22:58] VITALS: BMI 30.6
[2020-11-05] MEDS ORDERED: niCARdipine 25 MG in Sodium Chloride 0.9% 250 ML 240 ML IVPB SCH (23:30)
[2020-11-06 02:01] LABS: Actual Bicarbonate (HCO3a) 15.3 mEq/L (22-28); Base Excess (BEa) -6.7 mEq/L (-2.0 to +3.0); Carboxyhemoglobin (COHb) 0.3 gm% (0.0-3.0); Hemoglobin (Hb) 10.7 g/dL (12.0-16.0); O2 Tension (PaO2), arterial 140.9 mmHg (> 60.0); pH, Arterial 7.47 (7.35-7.45)
[2020-11-06 02:10] LABS: CO2 Tension 21.3 mmHg (35.0-45.0); Puncture Site LRA
[2020-11-06 02:11] LABS: ALV-art Gradient 46.375 mmHg (0-20)
[2020-11-06 04:26] LABS: #Monocytes 1.8 thou/uL (0.11-0.59); #Neutrophils 13.6 thou/uL (1.40-6.50); %Eosinophils 0.1 % (0.0-10.0); %Lymphocytes 6.1 % (21.0-51.0); %Neutrophils 82.9 % (42.0-75.0); Mean Corpuscular HGB CONC 33.4 g/dL (32.0-36.0); Mean Corpuscular Hemoglobin 31.8 pg (27.0-31.0); Mean Corpuscular Volume 95.2 fL (78.0-98.0); Mean Platelet Volume 6.9 fL (7.4-10.4); Platelet Count 348 thou/uL (130-400); RBC Distribution Width 12.4 % (11.5-14.5); Red Blood Cell (RBC) Count 3.13 mill/uL (4.20-5.40); White Blood Cell (WBC) Count 16.4 thou/uL (4.8-10.8)
[2020-11-06 04:47] LABS: Anion Gap 15 mmol/L (10-20); BUN (Urea Nitrogen) 14 mg/dL (9.8-20.1); Calc. Creatinine Clearance 39 mL/min (70-130); Calcium 8.7 mg/dL (7.8-10.44); Carbon Dioxide 20 mmol/L (23-31); Chloride 102 mmol/L (98-107); Glucose 122 mg/dL (83-110); Potassium 3.7 mmol/L (3.5-5.1); Sodium 133 mmol/L (136-145)
[2020-11-06 07:19] VITALS: BP 136/54
[2020-11-06] MEDS ORDERED: hydrALAZINE 20 MG/ML VIAL SLOW IVP PRN (08:36)
[2020-11-06] MEDS ORDERED: Bisacodyl 10 MG SUPP PR PRN (08:36)
[2020-11-06] MEDS ORDERED: Labetalol HCl 100 MG/20 ML VIAL SLOW IVP PRN (08:36)
[2020-11-06] MEDS ORDERED: Ondansetron PF 4 MG/2 ML Vial IVP PRN (08:36)
[2020-11-06] MEDS ORDERED: Famotidine/PF 20 mg/2ml Vial SLOW IVP SCH (09:00)
[2020-11-06] MEDS ORDERED: Pantoprazole 40 MG VIAL IVP SCH (09:00)
[2020-11-06] MEDS ORDERED: Lorazepam 2 MG/ML VIAL ONE (18:00)
[2020-11-06] MEDS ORDERED: Morphine 4 MG/ML VIAL ONE (18:00)
== END 2020-11-06 18:01 | disposition hospice, inpatient (51) | DRG 64 ==
LOC: ERS 19:01 → CCU 20:53
PROVIDERS: ADMIT Student in an Organized Health Care Education/Training Program; ATTEND Internal Medicine
PROC: 0BH17EZ Insertion of Endotracheal Airway into Trachea, Via Natural or Artificial Opening (ICD-10-PCS; principal; 2020-11-05)
PROC: 5A1935Z Respiratory Ventilation, Less than 24 Consecutive Hours (ICD-10-PCS; 2020-11-05)
PROC: 02HV33Z Insertion of Infusion Device into Superior Vena Cava, Percutaneous Approach (ICD-10-PCS; 2020-11-05)
PROC: 0D9670Z Drainage of Stomach with Drainage Device, Via Natural or Artificial Opening (ICD-10-PCS; 2020-11-05)
DX: I62.01 Nontraumatic acute subdural hemorrhage (principal); J96.01 Acute respiratory failure with hypoxia; G93.6 Cerebral edema; N39.0 Urinary tract infection, site not specified; E87.1 Hypo-osmolality and hyponatremia; E87.3 Alkalosis; G93.49 Other encephalopathy; E03.9 Hypothyroidism, unspecified; E78.5 Hyperlipidemia, unspecified; I12.9 Hypertensive chronic kidney disease with stage 1 through stage 4 chronic kidney disease, or unspecified chronic kidney disease; N18.9 Chronic kidney disease, unspecified; D63.8 Anemia in other chronic diseases classified elsewhere; N18.30 Chronic kidney disease, stage 3 unspecified; M47.812 Spondylosis without myelopathy or radiculopathy, cervical region; F03.90 Unspecified dementia, unspecified severity, without behavioral disturbance, psychotic disturbance, mood disturbance, and anxiety; E66.9 Obesity, unspecified; I48.0 Paroxysmal atrial fibrillation; Z66 Do not resuscitate; Z90.49 Acquired absence of other specified parts of digestive tract; Z90.721 Acquired absence of ovaries, unilateral; Z79.01 Long term (current) use of anticoagulants; Z88.0 Allergy status to penicillin; Z88.1 Allergy status to other antibiotic agents; Z88.5 Allergy status to narcotic agent; Z79.890 Hormone replacement therapy; Z79.899 Other long term (current) drug therapy; Z20.822 Contact with and (suspected) exposure to COVID-19; R40.20 Unspecified coma; Z78.1 Physical restraint status
CPT/HCPCS: 31500; 36416; 36556; 36600; 51702; 70450; 71045; 72125; 80048; 80053; 80306; 80307; 81003; 81015; 82140; 82550; 82805; 83690; 83880; 84146; 84443; 84484; 85025; 85379; 85610; 85730; 93005; 94002; 94003; 96365; 96366; 96367; 96368; 96375; 99292; C9113; J1953; J1956; J2150; J3010; J7050; J7799; U0002

== ENCOUNTER 2020-11-06 18:05 | Inpatient (IN) | payer OTHER ==
[2020-11-06] MEDS ORDERED: Scopolamine 1.5 mg/72 hour Patch TOP SCH (18:30)
[2020-11-06] MEDS ORDERED: Ondansetron PF 4 MG/2 ML Vial IVP PRN (18:30)
[2020-11-06] MEDS: Lorazepam 2 MG/ML VIAL SLOW IVP SCH ×2 (18:38→22:23)
[2020-11-06] MEDS: Morphine 4 MG/ML VIAL SLOW IVP SCH ×2 (18:38→22:26)
[2020-11-06] MEDS ORDERED: Lorazepam 2 MG/ML VIAL SLOW IVP SCH (19:30)
[2020-11-06] MEDS: Morphine 2 MG/ML VIAL SLOW IVP PRN (20:49)
[2020-11-07 00:14] VITALS: BMI 30.6
[2020-11-07] MEDS: Morphine 4 MG/ML VIAL SLOW IVP SCH ×6 (01:45→20:33)
[2020-11-07] MEDS: Lorazepam 2 MG/ML VIAL SLOW IVP SCH ×5 (01:47→18:37)
[2020-11-07] MEDS: Morphine 2 MG/ML VIAL SLOW IVP PRN ×2 (14:30→18:37)
[2020-11-07] MEDS: Lorazepam 2 MG/ML VIAL SLOW IVP PRN ×2 (16:42→20:33)
[2020-11-07 20:49] VITALS: BP 68/37
== END 2020-11-07 21:55 | disposition expired | DRG 951 ==
LOC: CCU 18:05 → SURG A 11-07 01:34
PROVIDERS: ADMIT Family Medicine; ATTEND Family Medicine
DX: Z51.5 Encounter for palliative care (principal); J96.01 Acute respiratory failure with hypoxia; A41.9 Sepsis, unspecified organism; Z66 Do not resuscitate; I62.00 Nontraumatic subdural hemorrhage, unspecified; G93.6 Cerebral edema; E87.3 Alkalosis; E87.1 Hypo-osmolality and hyponatremia; G93.49 Other encephalopathy; N39.0 Urinary tract infection, site not specified; I12.9 Hypertensive chronic kidney disease with stage 1 through stage 4 chronic kidney disease, or unspecified chronic kidney disease; D63.1 Anemia in chronic kidney disease; M47.812 Spondylosis without myelopathy or radiculopathy, cervical region; E03.9 Hypothyroidism, unspecified; I48.0 Paroxysmal atrial fibrillation; F03.90 Unspecified dementia, unspecified severity, without behavioral disturbance, psychotic disturbance, mood disturbance, and anxiety; E78.5 Hyperlipidemia, unspecified; E66.9 Obesity, unspecified; N18.30 Chronic kidney disease, stage 3 unspecified; Z88.0 Allergy status to penicillin; Z88.5 Allergy status to narcotic agent; Z88.8 Allergy status to other drugs, medicaments and biological substances; Z79.01 Long term (current) use of anticoagulants; Z90.49 Acquired absence of other specified parts of digestive tract; Z98.890 Other specified postprocedural states; Z90.721 Acquired absence of ovaries, unilateral; Z68.30 Body mass index [BMI] 30.0-30.9, adult
CPT/HCPCS: 94150; J2060; J2270